=== PATIENT | female | born 1965 | race Caucasian/White ===

== ENCOUNTER 2019-09-21 15:59 | Inpatient (IN) ==
--- OUTSIDE RECORDS SUMMARY | 2019-09-21 16:03 | External Medical Summary | Continuity of Care Document ---
:1965 Author Name Jimenez Badillo Address Unavailable Unavailable , Care Team Providers Name Role Phone Kiarra Badillo Unavailable [email or web address] Unavailable Unavailable Problems Active medical history not documented Allergies and Adverse Reactions Allergy history not documented Medications Medications not documented Procedures Procedures not documented Immunizations Immunizations not documented Plan of Treatment Planned Observations Planned Goals not documented Results No Known Results Results not documented
--- OUTSIDE RECORDS SUMMARY | 2019-09-21 16:04 | External Medical Summary | Continuity of Care Document ---
:1965 Author Name Jimenez Badillo Address Unavailable Unavailable , Care Team Providers Name Role Phone Kiarra Badillo Unavailable [email or web address] [email or web address] COTA Unavailable Unavailable Problems Active medical history not documented Allergies and Adverse Reactions Allergy history not documented Medications Medications not documented Procedures Procedures not documented Immunizations Immunizations not documented Plan of Treatment Planned Observations Planned Goals not documented Results No Known Results Results not documented
[2019-09-21] MEDS ORDERED: VANCOMYCIN HCL 1,750 MG in SODIUM CHLORIDE 0.9% 500 ML IV ONE (16:37)
[2019-09-21] MEDS ORDERED: cefTRIAXone SODIUM 2,000 MG/70 ML BAG IV STA (16:37)
[2019-09-21] MEDS ORDERED: SODIUM CHLORIDE 0.9% 1000ML 2,000 ML IV ONE (16:37)
[2019-09-21] MEDS ORDERED: ACETAMINOPHEN 1,000 MG/100 ML VIAL IV STA (16:37)
[2019-09-21] MEDS ORDERED: VANCOMYCIN CONSULT ACTIVE PRN (16:37)
[2019-09-21 17:41] LABS: Base Excess VBG 0.3 mEq/L; HCO3 VBG 24 mmol/L; PCO2 VBG 34 mmHg (38-50); PO2 VBG 23 mmHg; pH VBG 7.46 (7.36-7.41)
[2019-09-21 17:44] LABS: Oxygen Saturation VBG < 60.0 %
[2019-09-21 18:02] LABS: iSTAT Creatinine 1.9 mg/dl (0.6-1.3); iSTAT Hemoglobin 14.6 g/dl (12.0-16.0); iSTAT Ionized Calcium 1.07 mmol/l (1.12-1.32); iSTAT Potassium 3.1 mmol/L (3.3-5.0)
[2019-09-21 18:32] LABS: INR 1.1 (0.9-1.1); Partial Thromboplastin Ratio 1.6; Prothrombin Time 11.1 Seconds (9.0-12.0)
[2019-09-21 18:42] LABS: Hematocrit (blood only) 39.4 % (37-47); Hemoglobin 13.6 g/dL (12.0-16.0); Mean Corpuscular Hemoglobin 28.6 pg (25-34); Mean Corpuscular Hgb Conc 34.5 g/dL (32-36); Mean Corpuscular Volume 82.8 fL (80-100); Mean Platelet Volume 12.6 fL (7.4-10.4); Platelet Count 94 K/uL (130-400); RDW Coefficient of Variation 15.2 % (11.5-14.5); RDW Standard Deviation 46.2 fL (36.4-46.3); Red Blood Count 4.76 M/uL (4.2-5.4); White Blood Count 9.93 K/uL (4.8-10.8)
--- NOTE | 2019-09-21 18:42 | Emergency Department Note ---
Impression & Plan Transaminitis, Thrombocytopenia, Elevated troponin, Renal insufficiency, Sepsis, Anaplasmosis, History of splenectomy ED Provider Note NAME: HEMA WEBSTER AGE: 54 SEX: F ARRIVES VIA: Walk-In INFORMANT: Patient, ED PROVIDER(S): Александр Oates MD CHIEF COMPLAINT: Fever loss of balance. PLAN: Disposition: Admit MEDICAL DECISION MAKING: The patient is a pleasant 54-year-old woman with a past medical history of hypothyroidism, anxiety, splenectomy, history of colitis possibly related to C. difficile who presents emergency department with report of fever over the past several days with progressive worsening of her balance where she denies feeling dizzy per se but says she stands up and falls over. She was seen by her PCP today and referred to the emergency department for evaluation of her fever. The patient reports that her doctor told her they were worried for possible stroke as well. Patient denies any high risk exposures related to COVID-19 and no known contacts with individuals diagnosed with COVID-19. She denies cough or congestion. She does report diarrhea that began last night. She denies heada shanda or any urinary symptoms. On arrival the patient is uncomfortable but no acute distress, febrile to 39.9, tachycardic in the 110s with blood pressure 90s/50s. She appears clinically dry. She has no focal neuro deficits. Neck is supple with full range of motion. I did explain to the patient the concern for having fever in the setting of a splenectomy and recommendations for empiric antibiotics and admission. Ultimately the patient was agreeable with this plan. EKG unremarkable without evidence of acute ischemia. CXR negative. WBC and H/H wnl. Platelets 94K with smear c/w anaplasmosis. Chemistry without acidosis. Creatine 1.8 without recent values for comparison. Sodium 128 and potassium 3.0. LFTs are elevated to Total bilirubin 1.3, DB 0.4, AST 200, ALT 114, AP 255. Tr oponin 0.074 likely related to demand in the setting of anaplasmosis infection/sepsis. ESR wnl. CRP and Procal are elevated. UA with epitheleal cells. Covid[address] negative[address] head negative for acute process. CT abd pelvis demonstrates nonspecific pulmonary groundglass opacities and otherwise no defini tive acute process. Given patient's asplenia she was treated CTX and Vancomycine emprirically in addition to Doxycycline for Anaplasmosis. Patient was improved appears upon re-evaluation. She does report her dog was diagnosed with Anaplasmosis recently and she found a tick on her body 2 weeks ago but did not think it was there for long. Case was discussed [place]. Simmons, [facility] [place], who will evaluate the patient for admission. Triage Nursing notes reviewed and agree them. Prior medical records reviewed Vital Signs: reviewed and remarkable for no significant abnormalities Differential diagnosis: Sepsis, UTI, pneumonia, metabolic, electrolyte abnormalities, cardiac sources, intracerebral event, toxicologic, neurologic, as well as other pathologies. ER treatment provided: See below. Diagnostics interpreted by me: ECG: Sinus tachycardia, 114, normal axis, no overt ST elevation or depression, QTC 474, QRS 114. Cardiac Monitoring: An order for continuous cardiac monitoring was placed and demonstrated sinus tachycardia, 114 bpm, no ectopy. Laboratory studies: See below Imaging studies: XR chest 1V portable HISTORY: SEPSIS COMPARISON: Chest 10/18/2012. FINDINGS: The lungs are clear. Cardiac silhouette is normal in size. No pleural effusions. No pneumothorax. IMPRESSION: No acute process. -- HEAD CT NONCONTRAST CT DOSE: 638.56 mGycm HISTORY: loss of balance TECHNIQUE: Multiaxial CT images of the head were performed without the use of intravenous contrast. Automated exposure control was utilized for this study. A dose lowering technique was utilized adhering to the principles of ALARA. Comparison: None. Findings: Small fluid levels within the sphenoid sinuses. The mastoid air cells are clear. A cluster of calcifications within the right cerebellar hemisphere measuring 2.1 cm. The calvarium and skull base are intact. The ventricles and sulci are within normal limits. There is no mass, hematoma, midline shift, or acute infarct. Impression: 1. No acute intracranial abnormality. 2. Small fluid levels within the sphenoid sinuses. 3. Right cerebellar calcifications. This is likely chronic. -- ABDOMEN AND PELVIS CT WITHOUT CONTRAST CT DOSE: 1007.64 mGycm HISTORY: fever, asplenia, diarrhea TECHNIQUE: Multiaxial CT images of the abdomen and pelvis were performed without contrast. A dose lowering technique was utilized adhering to the principles of ALARA. COMPARISON STUDY: Abdomen and pelvis CT 11/17/2011. FINDINGS: There is a 12 mm nodule within the base of the right middle lobe on image 37. This demonstrates a groundglass halo. The left lung base is clear. No pneumoperitoneum. No pneumatosis. No suspicious lytic are blastic osseous lesions. A few small scattered soft tissue nodules within the left upper quadran t likely represent splenosis. A normal spleen is not identified. These remain stable. Stable mild periportal lymphadenopathy. The unenhanced liver, pancreas, and kidneys are unremarkable. No renal or ureteral stones. No hydronephrosis. Normal caliber abdominal aorta. No retroperitoneal lymphadenopathy. Minimal fat stranding adjacent to the adrenal glands. Adrenal glands are normal in size. The bladder is unremarkable. The uterus is surgically absent. A 4.2 cm cyst within the right ovary. Rectal anastomosis. No bowel wall thickening or obstruction. Normal appendix. IMPRESSION: 1. A 12 mm nodule within the right middle lobe. This demonstrates a groundglass halo and therefore may represent a small focus of inflammatory/infectious change. However, a neoplastic process is the diagnosis of exclusion. A [address] follow-up is recommended to ensure resolution. 2. Mild nonspecific fat stranding adjacent to the bilateral adrenal glands. The adrenal glands are normal in size. This could be chronic. 3. No definite bowel wall thickening or obstruction. 4. A 4.2 cm right ovarian cyst. 3 month pelvic ultrasound recommended to ensure resolution. This could be pathologic in a postmenopausal female. Consultation(s): Case was discussed with Dr. Simmons, [facility] [place], who will evaluate the patient for admission. HPI: The patient is a pleasant 54-year-old woman with a past medical history of hypothyroidism, anxiety, splenectomy, history of colitis possibly related to C. difficile who presents emergency department with report of fever over the past several days with progressive worsening of her balance where she denies feeling dizzy per se but says she stands up and falls over. She was seen by her PCP today and referred to the emergency department for evaluation of her fever. The patient reports that her doctor told her they were worried for possible stroke as well. Patient denies any high risk exposures related to COVID-19 and no known contacts with individuals diagnosed with COVID-19. She denies cough or congestion. She does report diarrhea that began last night. She denies headache or any urinary symptoms. ROS: See above HPI for pertinent positives & negatives. A total of 10 systems reviewed and were otherwise negative. PAST MEDICAL HISTORY:See Below PAST SURGICAL HISTORY:See Below FAMILY HISTORY:See Below SOCIAL HISTORY:See Below HOME MEDICATIONS:See Below ALLERGIES:See Below VITALS:See Below PHYSICAL EXAMINATION: GENERAL: Awake, alert, uncomfortable-appearing, in no distress HENT: Normocephalic, atraumatic. Oropharynx with dry mucous membranes and otherwise unremarkable. EYES: Normal conjunctiva. Sclera non-icteric. EOMI. No nystamgus. PEARRL. NECK: Supple. No nuchal rigidity. FROM. No JVD. RESPIRATORY: Clear to auscultation. CARDIAC: Tachycardic rate, normal rhythm. Extremities warm and well perfused. Pulses equal. ABDOMEN: Soft, non-distended. No tenderness to palpation. No rebound or guarding. No masses. RECTAL: Deferred. MUSCULOSKELETAL: Chest examination reveals no tenderness. The back is symmetrical on inspection without obvious abnormality. There is no CVA tenderness to palpation. No joint edema. LOWER EXTREMITIES: Calves are equal size bilaterally and non-tender. No edema. No discoloration. NEURO: Normal sensorium. No sensory or motor deficits noted. 5/5 strength and SILT x 4 extremities. Cerebellar function intact including [id number], alternating palms, [id number]. SKIN: No rash or jaundice noted. ED COURSE: Critical Care: I have personally spent greater than 75 minutes of critical care time in the direct management of this patient. This includes bedside care, interpretation of diagnostic studies, and testing, discussion with consultants, patient, and family members, and other required patient management activities. This 75 minutes is in excess of all separately billable procedures. Александр Oates MD Past Med/Surg History Medical History (Updated 09/22/19 @ 03:35 by Александр Oates MD) History of splenectomy (Acute) Social History Preferred Language: [place] Communication Ability: Effective [employer] Truck [employer] Required: No Beliefs That Will Affect Care: None Current Living Situation: Spouse Other Information That Helps Us Care for You: No Feels Safe at Home: Yes Safety Concerns: Feels Safe At This Time Smoking Status: Never smoker Do You Dip or Chew Tobacco: No ; Second Hand Exp osure: No ; Hx Alcohol Use: No Hx Substance Use: No Allergies Allergies Allergy/AdvReac Type Severity Reaction Status Date / Time nisoldipine Allergy UNKN Verified 09/21/19 20:48 telithromycin Allergy UNKN Verified 09/21/19 20:48 propoxyphene AdvReac Mild shakes Verified 09/21/19 20:48 zolpidem AdvReac Mild dizzy Verified 09/21/19 20:48 ANITIBIOTICS Allergy . Uncoded 09/21/19 20:48 Tartrazine Allergy UNKN Uncoded 09/21/19 20:48 Home Meds Home Medications Medication Instructions Recorded Confirmed Omeprazole Disintegrating Tab 10 mg PO DAILY 09/21/19 09/21/19 amitriptyline 75 mg PO DAILY 09/21/19 09/21/19 levothyroxine [Unithroid] 100 mcg PO DAILY 09/21/19 09/21/19 Results & Data (ED) Vital Signs Vital Signs - 24 hr 09/21/19 16:08 09/21/19 16:37 09/21/19 17:05 Temperature 39.9 C H Temperature Source Oral Pulse Rate 116 H 113 H Pulse Rate from SpO2 Sensor Respiratory Rate 20 16 Blood Pressure 92/55 L 105/54 L Blood Pressure Mean 67 89 Pulse Oximetry 95 95 Oxygen Delivery Method Room Air Room Air Sepsis Recent Fever Within 48 Hours Yes Sepsis New/Unexplained Change in Mental Status No Sepsis Action Taken by Nursing No Action Required 09/21/19 17:15 09/21/19 17:30 09/21/19 17:45 Temperature Temperature Source Pulse Rate 116 H Pulse Rate from SpO2 Sensor 118 H Respiratory Rate 22 22 22 Blood Pressure 130/61 122/61 123/64 Blood Pressure Mean 77 69 85 Pulse Oximetry 99 Oxygen Delivery Method Sepsis Recent Fever Within 48 Hours Sepsis New/Unexplained Change in Mental Status Sepsis Action Taken by Nursing 09/21/19 18:31 09/21/19 18:45 09/21/19 19:30 Temperature Temperature Source Pulse Rate 108 H 105 H 100 H Pulse Rate from SpO2 Sensor 109 H 105 H 100 H Respiratory Rate 17 23 19 Blood Pressure 111/65 93/60 L 94/55 L Blood Pressure Mean 67 67 71 Pulse Oximetry 92 95 91 Oxygen Delivery Method Sepsis Recent Fever Within 48 Hours Sepsis New/Unexplained Change in Mental Status Sepsis Action Taken by Nursing 09/21/19 21:00 09/21/19 21:30 Temperature 37.8 C H Temperature Source Oral Pulse Rate 97 H 98 H Pulse Rate from SpO2 Sensor 98 H 98 H Respiratory Rate 18 20 Blood Pressure 113/67 126/68 Blood Pressure Mean 76 82 Pulse Oximetry 92 91 Oxygen Delivery Method Sepsis Recent Fever Within 48 Hours Sepsis New/Unexplained Change in Mental Status Sepsis Action Taken by Nursing Laboratory Data Attestation: I reviewed the patient's lab results. Result diagrams: 09/22/19 01:03 09/22/19 01:03 Lab Results 09/21/19 09/21/19 09/21/19 Range/Units 17:20 17:20 17:20 WBC 9.93 (4.8-10.8) K/uL RBC 4.76 (4.2-5.4) M/uL Hgb 13.6 (12.0-16.0) g/dL POC Hgb (12.0-16.0) g/dl Hct 39.4 (37-47) % POC Hct (37-47) % MCV 82.8 (80-100) fL MCH 28.6 (25-34) pg MCHC 34.5 (32-36) g/dL RDW Std Deviation 46.2 (36.4-46.3) fL RDW Coeff of Akila 15.2 H (11.5-14.5) % Plt Count 94 L (130-400) K/uL MPV 12.6 H (7.4-10.4) fL Immature Gran % (Auto) 0.8 % Neut % (Auto) 84.7 % Lymph % (Auto) 9.5 % Navarro % (Auto) 4.2 % Eos % (Auto) 0.7 % Baso % (Auto) 0.1 % Neut # (Auto) 8.41 H (1.4-6.5) K/uL Lymph # (Auto) 0.94 L (1.2-3.4) K/uL Navarro # (Auto) 0.42 (0.11-0.59) K/uL Eos # (Auto) 0.07 (0-0.5) K/uL Baso # (Auto) 0.01 (0-0.2) K/uL Immature Gran # (Auto) 0.08 H (0.00-0.02) K/uL Toxic Granulation 1+ Toxic Vacuolation 2+ Platelet Estimate Decreased L (Normal) Giant Platelets 1+ Echinocytes 1+ Schistocytes Occasional ESR 14 (0-21) mm/hr PT 11.1 (9.0-12.0) Seconds INR 1.1 (0.9-1.1) APTT 45.0 H (21.0-31.0) Seconds PTT Ratio 1.6 VBG pH (7.36-7.41) VBG pCO2 (38-50) mmHg VBG pO2 mmHg VBG HCO3 mmol/L VBG O2 Saturation % VBG Base Excess mEq/L Barometric Pressure mm/Hg POC Sodium (135-144) mmol/L Sodium (136-145) mmol/L POC Potassium (3.3-5.0) mmol/L Potassium (3.5-5.1) mmol/L POC Chloride (101-112) mmol/L Chloride (98-107) mmol/L Carbon Dioxide (21-32) mmol/L POC Total CO2 (24-31) mmol/L Anion Gap (3-11) POC Anion Gap (16-25) mmol/L POC BUN (7-18) mg/dl BUN (7-18) mg/dl Creatinine (0.6-1.2) mg/dl POC Creatinine (0.6-1.3) mg/dl Est Cr Clr Drug Dosing ml/min Est GFR ( Amer) Est GFR (Non-Af Amer) BUN/Creatinine Ratio (10-20) Glucose (70-99) mg/dl POC Glucose (other) (70-99) mg/dl Osmolality (280-300) mOsm/kg Lactate (0.4-2.0) mmol/L Calcium (8.5-10.1) mg/dl POC Ioniz Calcium Mandy (1.12-1.32) mmol/l Phosphorus (2.5-4.9) mg/dl Magnesium (1.8-2.4) mg/dl Total Bilirubin (0.2-1) mg/dl Direct Bilirubin (0-0.2) mg/dl AST (15-37) U/L ALT (12-78) U/L Alkaline Phosphatase (45-117) U/L Troponin I (0-0.045) ng/ml C-Reactive Protein (0-0.29) mg/dl Total Protein (6.4-8.2) gm/dl Albumin (3.4-5.0) gm/dl Globulin (2.5-4.0) gm/dl Albumin/Globulin Ratio (0.9-2) Procalcitonin (0-0.5) ng/ml Urine Color Urine Appearance (Clear) Urine pH (4.5-7.5) Ur Specific Manderson (1.000-1.030) Urine Protein (Negative) Urine Glucose (UA) (Negative) Urine Ketones (Negative) Urine Blood (Negative) Urine Nitrite (Negative) Urine Bilirubin (Negative) Urine Urobilinogen (Negative) Ur Leukocyte Esterase (Negative) Urine WBC (Auto) (0-5) /hpf Urine RBC (Auto) (0-4) /hpf U Hyaline Cast (Auto) (0-5) /lpf U Epithel Cells (Auto) (0-5) /lpf Urine Bacteria (Auto) (Negative) Ur Renal Epithelial Cell (0-5) /lpf Granular Casts (0) /lpf Urine Yeast Stl C. diff Tox B Gene Anaplasma Smear See Comment A COVID-19 PCR (Negative) 09/21/19 09/21/19 09/21/19 Range/Units 17:20 17:20 17:20 WBC (4.8-10.8) K/uL RBC (4.2-5.4) M/uL Hgb (12.0-16.0) g/dL POC Hgb (12.0-16.0) g/dl Hct (37-47) % POC Hct (37-47) % MCV (80-100) fL MCH (25-34) pg MCHC (32-36) g/dL RDW Std Deviation (36.4-46.3) fL RDW Coeff of Akila (11.5-14.5) % Plt Count (130-400) K/uL MPV (7.4-10.4) fL Immature Gran % (Auto) % Neut % (Auto) % Lymph % (Auto) % Navarro % (Auto) % Eos % (Auto) % Baso % (Auto) % Neut # (Auto) (1.4-6.5) K/uL Lymph # (Auto) (1.2-3.4) K/uL Navarro # (Auto) (0.11-0.59) K/uL Eos # (Auto) (0-0.5) K/uL Baso # (Auto) (0-0.2) K/uL Immature Gran # (Auto) (0.00-0.02) K/uL Toxic Granulation Toxic Vacuolation Platelet Estimate (Normal) Giant Platelets Echinocytes Schistocytes ESR (0-21) mm/hr PT (9.0-12.0) Seconds INR (0.9-1.1) APTT (21.0-31.0) Seconds PTT Ratio VBG pH (7.36-7.41) VBG pCO2 (38-50) mmHg VBG pO2 mmHg VBG HCO3 mmol/L VBG O2 Saturation % VBG Base Excess mEq/L Barometric Pressure mm/Hg POC Sodium (135-144) mmol/L Sodium 127 L (136-145) mmol/L POC Potassium (3.3-5.0) mmol/L Potassium 3.0 L (3.5-5.1) mmol/L POC Chloride (101-112) mmol/L Chloride 94 L (98-107) mmol/L Carbon Dioxide 22 (21-32) mmol/L POC Total CO2 (24-31) mmol/L Anion Gap 11.0 (3-11) POC Anion Gap (16-25) mmol/L POC BUN (7-18) mg/dl BUN 32 H (7-18) mg/dl Creatinine 1.86 H (0.6-1.2) mg/dl POC Creatinine (0.6-1.3) mg/dl Est Cr Clr Drug Dosing 38.0 ml/min Est GFR ( Amer) 34.4 Est GFR (Non-Af Amer) 29.7 BUN/Creatinine Ratio 17.2 (10-20) Glucose 87 (70-99) mg/dl POC Glucose (other) (70-99) mg/dl Osmolality (280-300) mOsm/kg Lactate 1.6 (0.4-2.0) mmol/L Calcium 8.7 (8.5-10.1) mg/dl POC Ioniz Calcium Mandy (1.12-1.32) mmol/l Phosphorus 2.6 (2.5-4.9) mg/dl Magnesium 2.2 (1.8-2.4) mg/dl Total Bilirubin 1.3 H (0.2-1) mg/dl Direct Bilirubin 0.5 H (0-0.2) mg/dl AST 200 H (15-37) U/L ALT 114 H (12-78) U/L Alkaline Phosphatase 255 H (45-117) U/L Troponin I 0.074 H* (0-0.045) ng/ml C-Reactive Protein 17.60 H (0-0.29) mg/dl Total Protein 8.0 (6.4-8.2) gm/dl Albumin 3.3 L (3.4-5.0) gm/dl Globulin 4.7 H (2.5-4.0) gm/dl Albumin/Globulin Ratio 0.7 L (0.9-2) Procalcitonin 9.46 H (0-0.5) ng/ml Urine Color Urine Appearance (Clear) Urine pH (4.5-7.5) Ur Specific Manderson (1.000-1.030) Urine Protein (Negative) Urine Glucose (UA) (Negative) Urine Ketones (Negative) Urine Blood (Negative) Urine Nitrite (Negative) Urine Bilirubin (Negative) Urine Urobilinogen (Negative) Ur Leukocyte Esterase (Negative) Urine WBC (Auto) (0-5) /hpf Urine RBC (Auto) (0-4) /hpf U Hyaline Cast (Auto) (0-5) /lpf U Epithel Cells (Auto) (0-5) /lpf Urine Bacteria (Auto) (Negative) Ur Renal Epithelial Cell (0-5) /lpf Granular Casts (0) /lpf Urine Yeast Stl C. diff Tox B Gene Anaplasma Smear COVID-19 PCR (Negative) 09/21/19 09/21/19 09/21/19 Range/Units 17:20 17:20 17:46 WBC (4.8-10.8) K/uL RBC (4.2-5.4) M/uL Hgb (12.0-16.0) g/dL POC Hgb (12.0-16.0) g/dl Hct (37-47) % POC Hct (37-47) % MCV (80-100) fL MCH (25-34) pg MCHC (32-36) g/dL RDW Std Deviation (36.4-46.3) fL RDW Coeff of Akila (11.5-14.5) % Plt Count (130-400) K/uL MPV (7.4-10.4) fL Immature Gran % (Auto) % Neut % (Auto) % Lymph % (Auto) % Navarro % (Auto) % Eos % (Auto) % Baso % (Auto) % Neut # (Auto) (1.4-6.5) K/uL Lymph # (Auto) (1.2-3.4) K/uL Navarro # (Auto) (0.11-0.59) K/uL Eos # (Auto) (0-0.5) K/uL Baso # (Auto) (0-0.2) K/uL Immature Gran # (Auto) (0.00-0.02) K/uL Toxic Granulation Toxic Vacuolation Platelet Estimate (Normal) Giant Platelets Echinocytes Schistocytes ESR (0-21) mm/hr PT (9.0-12.0) Seconds INR (0.9-1.1) APTT (21.0-31.0) Seconds PTT Ratio VBG pH 7.46 H (7.36-7.41) VBG pCO2 34 L (38-50) mmHg VBG pO2 23 mmHg VBG HCO3 24 mmol/L VBG O2 Saturation < 60.0 % VBG Base Excess 0.3 mEq/L Barometric Pressure 730.8 mm/Hg POC Sodium (135-144) mmol/L Sodium (136-145) mmol/L POC Potassium (3.3-5.0) mmol/L Potassium (3.5-5.1) mmol/L POC Chloride (101-112) mmol/L Chloride (98-107) mmol/L Carbon Dioxide (21-32) mmol/L POC Total CO2 (24-31) mmol/L Anion Gap (3-11) POC Anion Gap (16-25) mmol/L POC BUN (7-18) mg/dl BUN (7-18) mg/dl Creatinine (0.6-1.2) mg/dl POC Creatinine (0.6-1.3) mg/dl Est Cr Clr Drug Dosing ml/min Est GFR ( Amer) Est GFR (Non-Af Amer) BUN/Creatinine Ratio (10-20) Glucose (70-99) mg/dl POC Glucose (other) (70-99) mg/dl Osmolality 279 L (280-300) mOsm/kg Lactate (0.4-2.0) mmol/L Calcium (8.5-10.1) mg/dl POC Ioniz Calcium Mandy (1.12-1.32) mmol/l Phosphorus (2.5-4.9) mg/dl Magnesium (1.8-2.4) mg/dl Total Bilirubin (0.2-1) mg/dl Direct Bilirubin (0-0.2) mg/dl AST (15-37) U/L ALT (12-78) U/L Alkaline Phosphatase (45-117) U/L Troponin I (0-0.045) ng/ml C-Reactive Protein (0-0.29) mg/dl Total Protein (6.4-8.2) gm/dl Albumin (3.4-5.0) gm/dl Globulin (2.5-4.0) gm/dl Albumin/Globulin Ratio (0.9-2) Procalcitonin (0-0.5) ng/ml Urine Color Urine Appearance (Clear) Urine pH (4.5-7.5) Ur Specific Manderson (1.000-1.030) Urine Protein (Negative) Urine Glucose (UA) (Negative) Urine Ketones (Negative) Urine Blood (Negative) Urine Nitrite (Negative) Urine Bilirubin (Negative) Urine Urobilinogen (Negative) Ur Leukocyte Esterase (Negative) Urine WBC (Auto) (0-5) /hpf Urine RBC (Auto) (0-4) /hpf U Hyaline Cast (Auto) (0-5) /lpf U Epithel Cells (Auto) (0-5) /lpf Urine Bacteria (Auto) (Negative) Ur Renal Epithelial Cell (0-5) /lpf Granular Casts (0) /lpf Urine Yeast Stl C. diff Tox B Gene Anaplasma Smear COVID-19 PCR NEGATIVE (Negative) 09/21/19 09/21/19 09/21/19 Range/Units 17:50 18:17 18:17 WBC (4.8-10.8) K/uL RBC (4.2-5.4) M/uL Hgb (12.0-16.0) g/dL POC Hgb 14.6 (12.0-16.0) g/dl Hct (37-47) % POC Hct 43 (37-47) % MCV (80-100) fL MCH (25-34) pg MCHC (32-36) g/dL RDW Std Deviation (36.4-46.3) fL RDW Coeff of Akila (11.5-14.5) % Plt Count (130-400) K/uL MPV (7.4-10.4) fL Immature Gran % (Auto) % Neut % (Auto) % Lymph % (Auto) % Navarro % (Auto) % Eos % (Auto) % Baso % (Auto) % Neut # (Auto) (1.4-6.5) K/uL Lymph # (Auto) (1.2-3.4) K/uL Navarro # (Auto) (0.11-0.59) K/uL Eos # (Auto) (0-0.5) K/uL Baso # (Auto) (0-0.2) K/uL Immature Gran # (Auto) (0.00-0.02) K/uL Toxic Granulation Toxic Vacuolation Platelet Estimate (Normal) Giant Platelets Echinocytes Schistocytes ESR (0-21) mm/hr PT (9.0-12.0) Seconds INR (0.9-1.1) APTT (21.0-31.0) Seconds PTT Ratio VBG pH (7.36-7.41) VBG pCO2 (38-50) mmHg VBG pO2 mmHg VBG HCO3 mmol/L VBG O2 Saturation % VBG Base Excess mEq/L Barometric Pressure mm/Hg POC Sodium 128 L (135-144) mmol/L Sodium (136-145) mmol/L POC Potassium 3.1 L (3.3-5.0) mmol/L Potassium (3.5-5.1) mmol/L POC Chloride 94 L (101-112) mmol/L Chloride (98-107) mmol/L Carbon Dioxide (21-32) mmol/L POC Total CO2 21 L (24-31) mmol/L Anion Gap (3-11) POC Anion Gap 17.0 (16-25) mmol/L POC BUN 33 H (7-18) mg/dl BUN (7-18) mg/dl Creatinine (0.6-1.2) mg/dl POC Creatinine 1.9 H (0.6-1.3) mg/dl Est Cr Clr Drug Dosing ml/min Est GFR ( Amer) Est GFR (Non-Af Amer) BUN/Creatinine Ratio (10-20) Glucose (70-99) mg/dl POC Glucose (other) 96 (70-99) mg/dl Osmolality (280-300) mOsm/kg Lactate (0.4-2.0) mmol/L Calcium (8.5-10.1) mg/dl POC Ioniz Calcium Mandy 1.07 L (1.12-1.32) mmol/l Phosphorus (2.5-4.9) mg/dl Magnesium (1.8-2.4) mg/dl Total Bilirubin (0.2-1) mg/dl Direct Bilirubin (0-0.2) mg/dl AST (15-37) U/L ALT (12-78) U/L Alkaline Phosphatase (45-117) U/L Troponin I (0-0.045) ng/ml C-Reactive Protein (0-0.29) mg/dl Total Protein (6.4-8.2) gm/dl Albumin (3.4-5.0) gm/dl Globulin (2.5-4.0) gm/dl Albumin/Globulin Ratio (0.9-2) Procalcitonin (0-0.5) ng/ml Urine Color Dark Yellow Urine Appearance Turbid A (Clear) Urine pH 5.0 (4.5-7.5) Ur Specific Manderson 1.018 (1.000-1.030) Urine Protein 2+ H (Negative) Urine Glucose (UA) Negative (Negative) Urine Ketones Trace H (Negative) Urine Blood 2+ H (Negative) Urine Nitrite Negative (Negative) Urine Bilirubin Negative (Negative) Urine Urobilinogen Negative (Negative) Ur Leukocyte Esterase Negative (Negative) Urine WBC (Auto) 10-30 H (0-5) /hpf Urine RBC (Auto) 0-4 (0-4) /hpf U Hyaline Cast (Auto) >30 H (0-5) /lpf U Epithel Cells (Auto) >30 H (0-5) /lpf Urine Bacteria (Auto) Negative (Negative) Ur Renal Epithelial Cell 5-10 H (0-5) /lpf Granular Casts 10-20 H (0) /lpf Urine Yeast Not Reportable Stl C. diff Tox B Gene TNP Anaplasma Smear COVID-19 PCR (Negative) Administered Medications Amitriptyline HCl (Elavil) 75 mg PO HS CELIA Stop: 10/21/19 22:57 Last Admin: 09/22/19 00:49 Dose: 75 mg Documented by: [id number] Sodium Chloride (Nss 1000ml) 1,000 mls @ 125 mls/hr IV .Q8H CELIA Stop: 09/22/19 16:59 Last Admin: 09/22/19 01:00 Dose: 125 mls/hr Documented by: [id number] Discontinued Medications Sodium Chloride (Nss 1000ml) 2,000 mls @ 999 mls/hr IV .Q2H1M ONE Stop: 09/21/19 18:37 Last Infusion: 09/21/19 20:31 Dose: 0 mls/hr Documented by: [id number] Admin: 09/21/19 18:00 Dose: 999 mls/hr Documented by: [id number] Acetaminophen (Ofirmev) 1,000 mg in 100 mls @ 400 mls/hr IV NOW STA Stop: 09/21/19 16:51 Last Infusion: 09/21/19 18:15 Dose: 0 mls/hr Documented by: [id number] Admin: 09/21/19 18:00 Dose: 400 mls/hr Documented by: [id number] Ceftriaxone Sodium (Rocephin) 2,000 mg in 70 mls @ 140 mls/hr IV NOW STA Stop: 09/21/19 17:06 Last Infusion: 09/21/19 18:30 Dose: 0 mls/hr Documented by: [id number] Admin: 09/21/19 18:00 Dose: 140 mls/hr Documented by: [id number] Vancomycin HCl 1,750 mg/ (Sodium Chloride) 535 mls @ 200 mls/hr IV NOW ONE Stop: 09/21/19 19:17 Last Infusion: 09/21/19 21:56 Dose: 0 mls/hr Documented by: [id number] Admin: 09/21/19 18:15 Dose: 200 mls/hr Documented by: [id number] Doxycycline Hyclate 100 mg/ (Dextrose) 110 mls @ 50 mls/hr IV NOW STA Stop: 09/21/19 21:15 Last Infusion: 09/21/19 22:18 Dose: 0 mls/hr Documented by: [id number] Admin: 09/21/19 20:12 Dose: 50 mls/hr Documented by: [id number] Acetaminophen (Ofirmev) 1,000 mg in 100 mls @ 400 mls/hr IV ONE ONE Stop: 09/22/19 01:44 Last Infusion: 09/22/19 02:29 Dose: 0 mls/hr Documented by: [id number] Admin: 09/22/19 02:01 Dose: 400 mls/hr Documented by: [id number] Potassium Chloride (Klor-Con M20) 80 meq PO NOW STA Stop: 09/21/19 22:59 Last Admin: 09/22/19 00:49 Dose: 80 meq Documented by: [id number] Blood Pressure Blood Pressure Findings: Low blood pressure Blood Pressure Disposition: further management by hospitalist Discharge Plan Visit Data *Final* Discharge Date/Time: 09/21/19 22:12 Chief Complaint: Fever Stated Complaint: FEVER, NOT EATING, HEADACHE, SOB, POS STROKE ED Provider: Александр Oates Discharge Problem: Transaminitis, Thrombocytopenia, Elevated troponin, Renal insufficiency, Sepsis, Anaplasmosis, History of splenectomy Patient Disposition: Admitted As Inpatient Discharge Instructions Interventions: ED Discharge Assessment Last Done: 09/21/19 22:12 Discharge Problem: Sepsis Qualifiers: Sepsis type: sepsis due to unspecified organism Sepsis acute organ dysfunction status: with acute organ dysfunction Severe sepsis acute organ dysfunction type: acute renal failure Acute renal failure type: unspecified Severe sepsis shock status: without septic shock Qualified Code(s): A41.9 - Sepsis, unspecified organism
[2019-09-21 18:48] LABS: Albumin Level 3.3 gm/dl (3.4-5.0); BUN Creatinine Ratio 17.2 (10-20); Bilirubin Direct 0.5 mg/dl (0-0.2); C Reactive Protein 17.6 mg/dl (0-0.29); Calcium 8.7 mg/dl (8.5-10.1); Est GFR (African American) 34.4; Est GFR (Non-African American) 29.7; Magnesium 2.2 mg/dl (1.8-2.4)
[2019-09-21 18:51] LABS: Appearance Urine Turbid (Clear); Bacteria Urine Automated Negative (Negative); Blood Urine 2+ (Negative); Color Urine Dark Yellow; Epithelial Cell Urine Auto >30 /lpf (0-5); Glucose Urine UA Negative (Negative); Ketones Urine Trace (Negative); Leukocyte Esterase Urine Negative (Negative); Nitrite Urine Negative (Negative); Protein Urine 2+ (Negative); RBC Urine Automated 0-4 /hpf (0-4); Specific Gravity Urine 1.018 (1.000-1.030); Urobilinogen Urine Negative (Negative)
[2019-09-21 18:52] LABS: Bilirubin Urine Negative (Negative); Ictotest Urine Negative (Negative)
[2019-09-21 18:58] LABS: Basophils # (auto) 0.01 K/uL (0-0.2); Basophils % (auto) 0.1 %; Echinocytes 1+; Eosinophils # (auto) 0.07 K/uL (0-0.5); Eosinophils % (auto) 0.7 %; Giant Platelets 1+; Immature Granulocytes # (auto) 0.08 K/uL (0.00-0.02); Immature Granulocytes % (auto) 0.8 %; Lymphocytes # (auto) 0.94 K/uL (1.2-3.4); Lymphocytes % (auto) 9.5 %; Monocytes # (auto) 0.42 K/uL (0.11-0.59); Monocytes % (auto) 4.2 %; Neutrophils # (auto) 8.41 K/uL (1.4-6.5); Neutrophils % (auto) 84.7 %; Platelet Estimate Decreased (Normal); Schistocytes Occasional; Toxic Granulation 1+; Toxic Vacuolation 2+
[2019-09-21 18:59] LABS: Albumin Globulin Ratio 0.7 (0.9-2); Bilirubin,Total 1.3 mg/dl (0.2-1); Globulin 4.7 gm/dl (2.5-4.0); Phosphorus 2.6 mg/dl (2.5-4.9); Troponin I 0.074 ng/ml (0-0.045)
[2019-09-21 19:02] LABS: Cast Urine Automated >30 /lpf (0-5)
[2019-09-21] MEDS ORDERED: DOXYCYCLINE HYCLATE 100 MG in DEXTROSE 5% 100 ML IV STA (19:04)
--- NOTE | 2019-09-21 19:42 | XRay Report ---
XR chest 1V portable HISTORY: SEPSIS COMPARISON: Chest 10/18/2012. FINDINGS: The lungs are clear. Cardiac silhouette is normal in size. No pleural effusions. No pneumot horax. IMPRESSION: No acute process. ACT 112: Negative or not required by law. Electronically signed by: Gold Buitrago M.D. 09/21/2019 7:40 PM
--- NOTE | 2019-09-21 20:20 | CT Scan Report ---
ABDOMEN AND PELVIS CT WITHOUT CONTRAST CT DOSE: 1007.64 mGycm HISTORY: fever, asplenia, diarrhea TECHNIQUE: Multiaxial CT images of the abdomen and pelvis were performed without contrast. A dose lo wering technique was utilized adhering to the principles of ALARA. COMPARISON STUDY: Abdomen and pelvis CT 11/17/2011. FINDINGS: There is a 12 mm nodule within the base of the right middle lobe on image 37. This demonstr ates a groundglass halo. The left lung base is clear. No pneumoperitoneum. No pneumatosis. No suspici ous lytic are blastic osseous lesions. A few small scattered soft tissue nodules within the left uppe r quadrant likely represent splenosis. A normal spleen is not identified. These remain stable. Stable mild periportal lymphadenopathy. The unenhanced liver, pancreas, and kidneys are unremarkable. No re nal or ureteral stones. No hydronephrosis. Normal caliber abdominal aorta. No retroperitoneal lymphad enopathy. Minimal fat stranding adjacent to the adrenal glands. Adrenal glands are normal in size. Th e bladder is unremarkable. The uterus is surgically absent. A 4.2 cm cyst within the right ovary. Rec rose anastomosis. No bowel wall thickening or obstruction. Normal appendix. IMPRESSION: 1. A 12 mm nodule within the right middle lobe. This demonstrates a groundglass halo and therefore ma y represent a small focus of inflammatory/infectious change. However, a neoplastic process is the josefina gnosis of exclusion. A [address] follow-up is recommended to ensure resolution. 2. Mild nonspecific fat stranding adjacent to the bilateral adrenal glands. The adrenal glands are no rmal in size. This could be chronic. 3. No definite bowel wall thickening or obstruction. 4. A 4.2 cm right ovarian cyst. 3 month pelvic ultrasound recommended to ensure resolution. This coul d be pathologic in a postmenopausal female. ACT 112: Negative or not required by law. Electronically signed by: Gold Buitrago M.D. 09/21/2019 8:19 PM
--- NOTE | 2019-09-21 20:26 | CT Scan Report ---
HEAD CT NONCONTRAST CT DOSE: 638.56 mGycm HISTORY: loss of balance TECHNIQUE: Multiaxial CT images of the head were performed without the use of intravenous contrast. A utomated exposure control was utilized for this study. A dose lowering technique was utilized adheri ng to the principles of ALARA. Comparison: None. Findings: Small fluid levels within the sphenoid sinuses. The mastoid air cells are clear. A cluster of calcifications within the right cerebellar hemisphere measuring 2.1 cm. The calvarium and skull ba se are intact. The ventricles and sulci are within normal limits. There is no mass, hematoma, midline shift, or acute infarct. Impression: 1. No acute intracranial abnormality. 2. Small fluid levels within the sphenoid sinuses. 3. Right cerebellar calcifications. This is likely chronic. ACT 112: Negative or not required by law. Electronically signed by: Gold Buitrago M.D. 09/21/2019 8:25 PM
--- NOTE | 2019-09-21 21:40 | History & Physical Report ---
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 Laboratory abnormalities most likely consistent with this diagnosis - elevated PTT, LFTs and thrombocytopenia. Patient additionally reports that her baseline WBC count is appx 16 so her present value of 9.93 may reflect relative leukopenia. -Doxycycline 100mg po q 12 hours. Monitor closely for clinical improvement -Tylenol PRN pain or fever -Zofran PRN nausea Present on Admission?: Yes (2) Elevated troponin: Troponin elevated at 0.074 --> 0.143. Patient denies chest pain. EKG with sinus tachycardia, no acute ischemic changes. Possibly secondary to Anaplasmosis, myocardial involvement vs sepsis. Doubt ACS. Patient presently hemodynamically stable. -Telemetry monitoring -Continue to trend troponin -Consider 2D echo Present on Admission?: Yes (3) Renal insufficiency: Elevated BUN and Cr, possibly pre-renal etiology as patient appears clinically dry, admits to decreased PO intake as well -NSS at 125mL/hr -Avoid nephrotoxic agents -Renal dosing where applicable -Continue to monitor BUN/Cr/electrolytes and UOP Present on Admission?: Yes (4) Transaminitis: Mixed hepatocellular/obstructive pattern to LFTs. No RUQ tenderness or hepatomegaly. Possibly secondary to underlying Anaplasmosis infection. -Repeat LFTs in AM Present on Admission?: Yes (5) Thrombocytopenia: Patient reports low platelets at baseline since her splenectomy, Plt=94. No bleeding -Continue to monitor -Treatment of Anaplasmosis, sepsis as above Present on Admission?: Yes (6) Hyponatremia: Na low at 127. Possibly secondary to poor PO intake and dehydration, Anaplasmosis, less likely SIADH from lung nodule. No seizure or neurological manifestations. -Check urine/serum Osm -Check Urine Na -IVF as above -Continue to monitor Na Present on Admission?: Yes (7) Lung nodule: Per CT . A 12 mm nodule within the right middle lobe. This demonstrates a groundglass halo and therefore may represent a small focus of inflammatory/infectious change. However, a neoplastic process is the diagnosis of exclusion. A [address] follow-up is recommended to ensure resolution. 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 Patient reports being UTD on all vaccinations -Empiric Ceftriaxone for now -Follow cultures Present on Admission?: Yes (10) Fibromyalgia: Noted -Continue Elavil F/E/N - NSS at 125mL/hr, montior electroltyes and replete as needed, PO K ordered - patient took appx 60mEq of the prescribed 80mEq then developed abdominal discomfort. Labs in AM, Regular diet as tolerated Ppx - Low risk for DVT Code - Full Dispo - Admission to medical floor Present on Admission?: Yes Admission and Anticipated Discharge Date Admission Date: 09/21/19 Anticipated date of discharge: 09/23/19 History of Present Illness Chief Complaint: weakness, fatigue Primary Care Provider: Andrew Gutierrez MD Giselle Goncalves is a 54yo C female with history of FM, Hypothyroidism, remote history of Auto-immune hemolytic anemia s/p splenectomy at age 13. She reports following regularly with PCP and is UTD on all vaccinations. Patient was in her usual state of health until appx 5 days ago when she began "feeling weird" to include weakness/fatigue, imbalance, fevers/chills. Diarrhea x 1 day. Also with headache and nausea as well as a rash in her left axilla. Patient febrile and tachycardic on arrival. She denies visual changes, focal numbness/tingling/weakness/CP/cough/SOB/dysuria No recent travel or sick contacts. No recent contact with Covid-19 positive individuals. +Tick exposure - patient had two recent tick bites approximately 2 weeks ago. She reports that the ticks were attached but not engorged. Patient has a dog that was diagnosed with Anaplasmosis years ago. ER Course: Vancomycin Ceftriaxone Doxycycline NSS Tylenol Allergies Allergy/AdvReac Type Severity Reaction Status Date / Time nisoldipine Allergy UNKN Verified 09/21/19 20:48 telithromycin Allergy UNKN Verified 09/21/19 20:48 propoxyphene AdvReac Mild shakes Verified 09/21/19 20:48 zolpidem AdvReac Mild dizzy Verified 09/21/19 20:48 ANITIBIOTICS Allergy . Uncoded 09/21/19 20:48 Tartrazine Allergy UNKN Uncoded 09/21/19 20:48 Home Medications Home Medications Medication Instructions Recorded Confirmed Type Omeprazole Disintegrating Tab 10 mg PO DAILY 09/21/19 09/21/19 History amitriptyline 75 mg PO DAILY 09/21/19 09/21/19 History levothyroxine [Unithroid] 100 mcg PO DAILY 09/21/19 09/21/19 History Past Med/Surg History Medical History (Updated 09/22/19 @ 04:37 by Rosmery Simmons DO) Fibromyalgia History of splenectomy (Acute) History of AIHA Surgical History (Updated 09/22/19 @ 04:19 by Rosmery Simmons DO) History of cholecystectomy Family History (Updated 09/22/19 @ 04:19 by Rosmery Simmons DO) Other No significant family history Social History Preferred Language: Greek Communication Ability: Effective [employer] Required: No Beliefs That Will Affect Care: None Current Living Situation: Spouse Other Information That Helps Us Care for You: No Feels Safe at Home: Yes Safety Concerns: Feels Safe At This Time Smoking Status: Never smoker Do You Dip or Chew Tobacco: No ; Second Hand Exposure: No ; Hx Alcohol Use: No Hx Substance Use: No Review of Systems Review of Systems: All systems reviewed & are unremarkable except as noted in HPI & below Physical Exam Physical Exam: General: patient resting comfortably, NAD, non-toxic in appearance, AA&O x 4 Skin: warm, dry, intact, erythematous rash in left axilla HEENT: NC/AT, PERRL, EOMI, anicteric sclera, conjunctiva without injection, external ear normal to inspection and nontender, nares patent, dry mucus membranes, dentition intact, no oropharyngeal lesions, neck supple, trachea midline, no LAD, no thyromegaly, no JVD Heart: +S1/S2, regular, no m/r/g Lungs: equal air entry bilaterally, no rales/rhonchi/wheezes Abd: +BS, soft, NT/ND, no masses/organomegaly/ascites Ext: warm, 2+ pulses in UE/LE bilaterally, no clubbing/cyanosis or edema Neuro: nonfocal, patient AA&O x 4, speech intact, no facial droop, moving all extremities on command with equal strength 5/5 Results & Data Results & Data ([facility]) Vital Signs (Past 12 Hours) Vital Signs Temp Pulse Resp BP Pulse Ox 09/21/19 19:30 100 H 19 94/55 L 91 09/21/19 18:45 105 H 23 93/60 L 95 09/21/19 18:31 108 H 17 111/65 92 09/21/19 17:45 22 123/64 99 09/21/19 17:30 22 122/61 09/21/19 17:15 116 H 22 130/61 09/21/19 17:05 113 H 16 105/54 L 09/21/19 16:37 95 09/21/19 16:08 39.9 C H 116 H 20 92/55 L 95 Laboratory Results Lab Results 09/21/19 09/21/19 09/21/19 Range/Units 17:20 17:20 17:20 WBC 9.93 (4.8-10.8) K/uL RBC 4.76 (4.2-5.4) M/uL Hgb 13.6 (12.0-16.0) g/dL POC Hgb (12.0-16.0) g/dl Hct 39.4 (37-47) % POC Hct (37-47) % MCV 82.8 (80-100) fL MCH 28.6 (25-34) pg MCHC 34.5 (32-36) g/dL RDW Std Deviation 46.2 (36.4-46.3) fL RDW Coeff of Akila 15.2 H (11.5-14.5) % Plt Count 94 L (130-400) K/uL MPV 12.6 H (7.4-10.4) fL Immature Gran % (Auto) 0.8 % Neut % (Auto) 84.7 % Lymph % (Auto) 9.5 % [place] % (Auto) 4.2 % Eos % (Auto) 0.7 % Baso % (Auto) 0.1 % Neut # (Auto) 8.41 H (1.4-6.5) K/uL Lymph # (Auto) 0.94 L (1.2-3.4) K/uL [place] # (Auto) 0.42 (0.11-0.59) K/uL Eos # (Auto) 0.07 (0-0.5) K/uL Baso # (Auto) 0.01 (0-0.2) K/uL Immature Gran # (Auto) 0.08 H (0.00-0.02) K/uL Toxic Granulation 1+ Toxic Vacuolation 2+ Platelet Estimate Decreased L (Normal) Giant Platelets 1+ Echinocytes 1+ Schistocytes Occasional ESR 14 (0-21) mm/hr PT 11.1 (9.0-12.0) Seconds INR 1.1 (0.9-1.1) APTT 45.0 H (21.0-31.0) Seconds PTT Ratio 1.6 VBG pH (7.36-7.41) VBG pCO2 (38-50) mmHg VBG pO2 mmHg VBG HCO3 mmol/L VBG O2 Saturation % VBG Base Excess mEq/L Barometric Pressure mm/Hg POC Sodium (135-144) mmol/L Sodium (136-145) mmol/L POC Potassium (3.3-5.0) mmol/L Potassium (3.5-5.1) mmol/L POC Chloride (101-112) mmol/L Chloride (98-107) mmol/L Carbon Dioxide (21-32) mmol/L POC Total CO2 (24-31) mmol/L Anion Gap (3-11) POC Anion Gap (16-25) mmol/L POC BUN (7-18) mg/dl BUN (7-18) mg/dl Creatinine (0.6-1.2) mg/dl POC Creatinine (0.6-1.3) mg/dl Est Cr Clr Drug Dosing ml/min Est GFR ( Amer) Est GFR (Non-Af Amer) BUN/Creatinine Ratio (10-20) Glucose (70-99) mg/dl POC Glucose (other) (70-99) mg/dl Osmolality (280-300) mOsm/kg Lactate (0.4-2.0) mmol/L Calcium (8.5-10.1) mg/dl POC Ioniz Calcium Mandy (1.12-1.32) mmol/l Ionized Calcium (1.12-1.32) mmol/L Phosphorus (2.5-4.9) mg/dl Magnesium (1.8-2.4) mg/dl Total Bilirubin (0.2-1) mg/dl Direct Bilirubin (0-0.2) mg/dl AST (15-37) U/L ALT (12-78) U/L Alkaline Phosphatase (45-117) U/L Troponin I (0-0.045) ng/ml C-Reactive Protein (0-0.29) mg/dl Total Protein (6.4-8.2) gm/dl Albumin (3.4-5.0) gm/dl Globulin (2.5-4.0) gm/dl Albumin/Globulin Ratio (0.9-2) Procalcitonin (0-0.5) ng/ml TSH (0.300-4.500) uIu/ml Urine Color Urine Appearance (Clear) Urine pH (4.5-7.5) Ur Specific [place] (1.000-1.030) Urine Protein (Negative) Urine Glucose (UA) (Negative) Urine Ketones (Negative) Urine Blood (Negative) Urine Nitrite (Negative) Urine Bilirubin (Negative) Urine Urobilinogen (Negative) Ur Leukocyte Esterase (Negative) Urine WBC (Auto) (0-5) /hpf Urine RBC (Auto) (0-4) /hpf U Hyaline Cast (Auto) (0-5) /lpf U Epithel Cells (Auto) (0-5) /lpf Urine Bacteria (Auto) (Negative) Ur Renal Epithelial Cell (0-5) /lpf Granular Casts (0) /lpf Urine Yeast Urine Osmolality (500-800) mOsm/kg Ur Random Sodium mmol/L Stl C. diff Tox B Gene Anaplasma Smear See Comment A COVID-19 PCR (Negative) Hepatitis C Ab Screen (Neg) 09/21/19 09/21/19 09/21/19 Range/Units 17:20 17:20 17:20 WBC (4.8-10.8) K/uL RBC (4.2-5.4) M/uL Hgb (12.0-16.0) g/dL POC Hgb (12.0-16.0) g/dl Hct (37-47) % POC Hct (37-47) % MCV (80-100) fL MCH (25-34) pg MCHC (32-36) g/dL RDW Std Deviation (36.4-46.3) fL RDW Coeff of Akila (11.5-14.5) % Plt Count (130-400) K/uL MPV (7.4-10.4) fL Immature Gran % (Auto) % Neut % (Auto) % Lymph % (Auto) % [place] % (Auto) % Eos % (Auto) % Baso % (Auto) % Neut # (Auto) (1.4-6.5) K/uL Lymph # (Auto) (1.2-3.4) K/uL [place] # (Auto) (0.11-0.59) K/uL Eos # (Auto) (0-0.5) K/uL Baso # (Auto) (0-0.2) K/uL Immature Gran # (Auto) (0.00-0.02) K/uL Toxic Granulation Toxic Vacuolation Platelet Estimate (Normal) Giant Platelets Echinocytes Schistocytes ESR (0-21) mm/hr PT (9.0-12.0) Seconds INR (0.9-1.1) APTT (21.0-31.0) Seconds PTT Ratio VBG pH (7.36-7.41) VBG pCO2 (38-50) mmHg VBG pO2 mmHg VBG HCO3 mmol/L VBG O2 Saturation % VBG Base Excess mEq/L Barometric Pressure mm/Hg POC Sodium (135-144) mmol/L Sodium 127 L (136-145) mmol/L POC Potassium (3.3-5.0) mmol/L Potassium 3.0 L (3.5-5.1) mmol/L POC Chloride (101-112) mmol/L Chloride 94 L (98-107) mmol/L Carbon Dioxide 22 (21-32) mmol/L POC Total CO2 (24-31) mmol/L Anion Gap 11.0 (3-11) POC Anion Gap (16-25) mmol/L POC BUN (7-18) mg/dl BUN 32 H (7-18) mg/dl Creatinine 1.86 H (0.6-1.2) mg/dl POC Creatinine (0.6-1.3) mg/dl Est Cr Clr Drug Dosing 38.0 ml/min Est GFR ( Amer) 34.4 Est GFR (Non-Af Amer) 29.7 BUN/Creatinine Ratio 17.2 (10-20) Glucose 87 (70-99) mg/dl POC Glucose (other) (70-99) mg/dl Osmolality (280-300) mOsm/kg Lactate 1.6 (0.4-2.0) mmol/L Calcium 8.7 (8.5-10.1) mg/dl POC Ioniz Calcium Mandy (1.12-1.32) mmol/l Ionized Calcium (1.12-1.32) mmol/L Phosphorus 2.6 (2.5-4.9) mg/dl Magnesium 2.2 (1.8-2.4) mg/dl Total Bilirubin 1.3 H (0.2-1) mg/dl Direct Bilirubin 0.5 H (0-0.2) mg/dl AST 200 H (15-37) U/L ALT 114 H (12-78) U/L Alkaline Phosphatase 255 H (45-117) U/L Troponin I 0.074 H* (0-0.045) ng/ml C-Reactive Protein 17.60 H (0-0.29) mg/dl Total Protein 8.0 (6.4-8.2) gm/dl Albumin 3.3 L (3.4-5.0) gm/dl Globulin 4.7 H (2.5-4.0) gm/dl Albumin/Globulin Ratio 0.7 L (0.9-2) Procalcitonin 9.46 H (0-0.5) ng/ml TSH (0.300-4.500) uIu/ml Urine Color Urine Appearance (Clear) Urine pH (4.5-7.5) Ur Specific [place] (1.000-1.030) Urine Protein (Negative) Urine Glucose (UA) (Negative) Urine Ketones (Negative) Urine Blood (Negative) Urine Nitrite (Negative) Urine Bilirubin (Negative) Urine Urobilinogen (Negative) Ur Leukocyte Esterase (Negative) Urine WBC (Auto) (0-5) /hpf Urine RBC (Auto) (0-4) /hpf U Hyaline Cast (Auto) (0-5) /lpf U Epithel Cells (Auto) (0-5) /lpf Urine Bacteria (Auto) (Negative) Ur Renal Epithelial Cell (0-5) /lpf Granular Casts (0) /lpf Urine Yeast Urine Osmolality (500-800) mOsm/kg Ur Random Sodium mmol/L Stl C. diff Tox B Gene Anaplasma Smear COVID-19 PCR (Negative) Hepatitis C Ab Screen (Neg) 09/21/19 09/21/19 09/21/19 Range/Units 17:20 17:20 17:46 WBC (4.8-10.8) K/uL RBC (4.2-5.4) M/uL Hgb (12.0-16.0) g/dL POC Hgb (12.0-16.0) g/dl Hct (37-47) % POC Hct (37-47) % MCV (80-100) fL MCH (25-34) pg MCHC (32-36) g/dL RDW Std Deviation (36.4-46.3) fL RDW Coeff of Akila (11.5-14.5) % Plt Count (130-400) K/uL MPV (7.4-10.4) fL Immature Gran % (Auto) % Neut % (Auto) % Lymph % (Auto) % [place] % (Auto) % Eos % (Auto) % Baso % (Auto) % Neut # (Auto) (1.4-6.5) K/uL Lymph # (Auto) (1.2-3.4) K/uL [place] # (Auto) (0.11-0.59) K/uL Eos # (Auto) (0-0.5) K/uL Baso # (Auto) (0-0.2) K/uL Immature Gran # (Auto) (0.00-0.02) K/uL Toxic Granulation Toxic Vacuolation Platelet Estimate (Normal) Giant Platelets Echinocytes Schistocytes ESR (0-21) mm/hr PT (9.0-12.0) Seconds INR (0.9-1.1) APTT (21.0-31.0) Seconds PTT Ratio VBG pH 7.46 H (7.36-7.41) VBG pCO2 34 L (38-50) mmHg VBG pO2 23 mmHg VBG HCO3 24 mmol/L VBG O2 Saturation < 60.0 % VBG Base Excess 0.3 mEq/L Barometric Pressure 730.8 mm/Hg POC Sodium (135-144) mmol/L Sodium (136-145) mmol/L POC Potassium (3.3-5.0) mmol/L Potassium (3.5-5.1) mmol/L POC Chloride (101-112) mmol/L Chloride (98-107) mmol/L Carbon Dioxide (21-32) mmol/L POC Total CO2 (24-31) mmol/L Anion Gap (3-11) POC Anion Gap (16-25) mmol/L POC BUN (7-18) mg/dl BUN (7-18) mg/dl Creatinine (0.6-1.2) mg/dl POC Creatinine (0.6-1.3) mg/dl Est Cr Clr Drug Dosing ml/min Est GFR ( Amer) Est GFR (Non-Af Amer) BUN/Creatinine Ratio (10-20) Glucose (70-99) mg/dl POC Glucose (other) (70-99) mg/dl Osmolality 279 L (280-300) mOsm/kg Lactate (0.4-2.0) mmol/L Calcium (8.5-10.1) mg/dl POC Ioniz Calcium Mandy (1.12-1.32) mmol/l Ionized Calcium (1.12-1.32) mmol/L Phosphorus (2.5-4.9) mg/dl Magnesium (1.8-2.4) mg/dl Total Bilirubin (0.2-1) mg/dl Direct Bilirubin (0-0.2) mg/dl AST (15-37) U/L ALT (12-78) U/L Alkaline Phosphatase (45-117) U/L Troponin I (0-0.045) ng/ml C-Reactive Protein (0-0.29) mg/dl Total Protein (6.4-8.2) gm/dl Albumin (3.4-5.0) gm/dl Globulin (2.5-4.0) gm/dl Albumin/Globulin Ratio (0.9-2) Procalcitonin (0-0.5) ng/ml TSH (0.300-4.500) uIu/ml Urine Color Urine Appearance (Clear) Urine pH (4.5-7.5) Ur Specific [place] (1.000-1.030) Urine Protein (Negative) Urine Glucose (UA) (Negative) Urine Ketones (Negative) Urine Blood (Negative) Urine Nitrite (Negative) Urine Bilirubin (Negative) Urine Urobilinogen (Negative) Ur Leukocyte Esterase (Negative) Urine WBC (Auto) (0-5) /hpf Urine RBC (Auto) (0-4) /hpf U Hyaline Cast (Auto) (0-5) /lpf U Epithel Cells (Auto) (0-5) /lpf Urine Bacteria (Auto) (Negative) Ur Renal Epithelial Cell (0-5) /lpf Granular Casts (0) /lpf Urine Yeast Urine Osmolality (500-800) mOsm/kg Ur Random Sodium mmol/L Stl C. diff Tox B Gene Anaplasma Smear COVID-19 PCR NEGATIVE (Negative) Hepatitis C Ab Screen (Neg) 09/21/19 09/21/19 09/21/19 Range/Units 17:50 18:17 18:17 WBC (4.8-10.8) K/uL RBC (4.2-5.4) M/uL Hgb (12.0-16.0) g/dL POC Hgb 14.6 (12.0-16.0) g/dl Hct (37-47) % POC Hct 43 (37-47) % MCV (80-100) fL MCH (25-34) pg MCHC (32-36) g/dL RDW Std Deviation (36.4-46.3) fL RDW Coeff of Akila (11.5-14.5) % Plt Count (130-400) K/uL MPV (7.4-10.4) fL Immature Gran % (Auto) % Neut % (Auto) % Lymph % (Auto) % [place] % (Auto) % Eos % (Auto) % Baso % (Auto) % Neut # (Auto) (1.4-6.5) K/uL Lymph # (Auto) (1.2-3.4) K/uL [place] # (Auto) (0.11-0.59) K/uL Eos # (Auto) (0-0.5) K/uL Baso # (Auto) (0-0.2) K/uL Immature Gran # (Auto) (0.00-0.02) K/uL Toxic Granulation Toxic Vacuolation Platelet Estimate (Normal) Giant Platelets Echinocytes Schistocytes ESR (0-21) mm/hr PT (9.0-12.0) Seconds INR (0.9-1.1) APTT (21.0-31.0) Seconds PTT Ratio VBG pH (7.36-7.41) VBG pCO2 (38-50) mmHg VBG pO2 mmHg VBG HCO3 mmol/L VBG O2 Saturation % VBG Base Excess mEq/L Barometric Pressure mm/Hg POC Sodium 128 L (135-144) mmol/L Sodium (136-145) mmol/L POC Potassium 3.1 L (3.3-5.0) mmol/L Potassium (3.5-5.1) mmol/L POC Chloride 94 L (101-112) mmol/L Chloride (98-107) mmol/L Carbon Dioxide (21-32) mmol/L POC Total CO2 21 L (24-31) mmol/L Anion Gap (3-11) POC Anion Gap 17.0 (16-25) mmol/L POC BUN 33 H (7-18) mg/dl BUN (7-18) mg/dl Creatinine (0.6-1.2) mg/dl POC Creatinine 1.9 H (0.6-1.3) mg/dl Est Cr Clr Drug Dosing ml/min Est GFR ( Amer) Est GFR (Non-Af Amer) BUN/Creatinine Ratio (10-20) Glucose (70-99) mg/dl POC Glucose (other) 96 (70-99) mg/dl Osmolality (280-300) mOsm/kg Lactate (0.4-2.0) mmol/L Calcium (8.5-10.1) mg/dl POC Ioniz Calcium Mandy 1.07 L (1.12-1.32) mmol/l Ionized Calcium (1.12-1.32) mmol/L Phosphorus (2.5-4.9) mg/dl Magnesium (1.8-2.4) mg/dl Total Bilirubin (0.2-1) mg/dl Direct Bilirubin (0-0.2) mg/dl AST (15-37) U/L ALT (12-78) U/L Alkaline Phosphatase (45-117) U/L Troponin I (0-0.045) ng/ml C-Reactive Protein (0-0.29) mg/dl Total Protein (6.4-8.2) gm/dl Albumin (3.4-5.0) gm/dl Globulin (2.5-4.0) gm/dl Albumin/Globulin Ratio (0.9-2) Procalcitonin (0-0.5) ng/ml TSH (0.300-4.500) uIu/ml Urine Color Dark Yellow Urine Appearance Turbid A (Clear) Urine pH 5.0 (4.5-7.5) Ur Specific [place] 1.018 (1.000-1.030) Urine Protein 2+ H (Negative) Urine Glucose (UA) Negative (Negative) Urine Ketones Trace H (Negative) Urine Blood 2+ H (Negative) Urine Nitrite Negative (Negative) Urine Bilirubin Negative (Negative) Urine Urobilinogen Negative (Negative) Ur Leukocyte Esterase Negative (Negative) Urine WBC (Auto) 10-30 H (0-5) /hpf Urine RBC (Auto) 0-4 (0-4) /hpf U Hyaline Cast (Auto) >30 H (0-5) /lpf U Epithel Cells (Auto) >30 H (0-5) /lpf Urine Bacteria (Auto) Negative (Negative) Ur Renal Epithelial Cell 5-10 H (0-5) /lpf Granular Casts 10-20 H (0) /lpf Urine Yeast Not Reportable Urine Osmolality (500-800) mOsm/kg Ur Random Sodium mmol/L Stl C. diff Tox B Gene TNP Anaplasma Smear COVID-19 PCR (Negative) Hepatitis C Ab Screen (Neg) 09/22/19 09/22/19 09/22/19 Range/Units 00:25 00:25 01:03 WBC (4.8-10.8) K/uL RBC (4.2-5.4) M/uL Hgb (12.0-16.0) g/dL POC Hgb (12.0-16.0) g/dl Hct (37-47) % POC Hct (37-47) % MCV (80-100) fL MCH (25-34) pg MCHC (32-36) g/dL RDW Std Deviation (36.4-46.3) fL RDW Coeff of Akila (11.5-14.5) % Plt Count (130-400) K/uL MPV (7.4-10.4) fL Immature Gran % (Auto) % Neut % (Auto) % Lymph % (Auto) % [place] % (Auto) % Eos % (Auto) % Baso % (Auto) % Neut # (Auto) (1.4-6.5) K/uL Lymph # (Auto) (1.2-3.4) K/uL [place] # (Auto) (0.11-0.59) K/uL Eos # (Auto) (0-0.5) K/uL Baso # (Auto) (0-0.2) K/uL Immature Gran # (Auto) (0.00-0.02) K/uL Toxic Granulation Toxic Vacuolation Platelet Estimate (Normal) Giant Platelets Echinocytes Schistocytes ESR (0-21) mm/hr PT (9.0-12.0) Seconds INR (0.9-1.1) APTT (21.0-31.0) Seconds PTT Ratio VBG pH (7.36-7.41) VBG pCO2 (38-50) mmHg VBG pO2 mmHg VBG HCO3 mmol/L VBG O2 Saturation % VBG Base Excess mEq/L Barometric Pressure mm/Hg POC Sodium (135-144) mmol/L Sodium (136-145) mmol/L POC Potassium (3.3-5.0) mmol/L Potassium (3.5-5.1) mmol/L POC Chloride (101-112) mmol/L Chloride (98-107) mmol/L Carbon Dioxide (21-32) mmol/L POC Total CO2 (24-31) mmol/L Anion Gap (3-11) POC Anion Gap (16-25) mmol/L POC BUN (7-18) mg/dl BUN (7-18) mg/dl Creatinine (0.6-1.2) mg/dl POC Creatinine (0.6-1.3) mg/dl Est Cr Clr Drug Dosing ml/min Est GFR ( Amer) Est GFR (Non-Af Amer) BUN/Creatinine Ratio (10-20) Glucose (70-99) mg/dl POC Glucose (other) (70-99) mg/dl Osmolality (280-300) mOsm/kg Lactate (0.4-2.0) mmol/L Calcium (8.5-10.1) mg/dl POC Ioniz Calcium Mandy (1.12-1.32) mmol/l Ionized Calcium (1.12-1.32) mmol/L Phosphorus (2.5-4.9) mg/dl Magnesium (1.8-2.4) mg/dl Total Bilirubin (0.2-1) mg/dl Direct Bilirubin (0-0.2) mg/dl AST (15-37) U/L ALT (12-78) U/L Alkaline Phosphatase (45-117) U/L Troponin I 0.143 H* (0-0.045) ng/ml C-Reactive Protein (0-0.29) mg/dl Total Protein (6.4-8.2) gm/dl Albumin (3.4-5.0) gm/dl Globulin (2.5-4.0) gm/dl Albumin/Globulin Ratio (0.9-2) Procalcitonin (0-0.5) ng/ml TSH (0.300-4.500) uIu/ml Urine Color Urine Appearance (Clear) Urine pH (4.5-7.5) Ur Specific [place] (1.000-1.030) Urine Protein (Negative) Urine Glucose (UA) (Negative) Urine Ketones (Negative) Urine Blood (Negative) Urine Nitrite (Negative) Urine Bilirubin (Negative) Urine Urobilinogen (Negative) Ur Leukocyte Esterase (Negative) Urine WBC (Auto) (0-5) /hpf Urine RBC (Auto) (0-4) /hpf U Hyaline Cast (Auto) (0-5) /lpf U Epithel Cells (Auto) (0-5) /lpf Urine Bacteria (Auto) (Negative) Ur Renal Epithelial Cell (0-5) /lpf Granular Casts (0) /lpf Urine Yeast Urine Osmolality 292 L (500-800) mOsm/kg Ur Random Sodium 18 mmol/L Stl C. diff Tox B Gene Anaplasma Smear COVID-19 PCR (Negative) Hepatitis C Ab Screen (Neg) 09/22/19 09/22/19 09/22/19 Range/Units 01:03 01:03 01:03 WBC 10.84 H (4.8-10.8) K/uL RBC 4.68 (4.2-5.4) M/uL Hgb 13.2 (12.0-16.0) g/dL POC Hgb (12.0-16.0) g/dl Hct 38.7 (37-47) % POC Hct (37-47) % MCV 82.7 (80-100) fL MCH 28.2 (25-34) pg MCHC 34.1 (32-36) g/dL RDW Std Deviation 46.8 H (36.4-46.3) fL RDW Coeff of [place] 15.5 H (11.5-14.5) % Plt Count 76 L (130-400) K/uL MPV 10.8 H (7.4-10.4) fL Immature Gran % (Auto) 0.7 % Neut % (Auto) 90.2 % Lymph % (Auto) 5.4 % [place] % (Auto) 3.6 % Eos % (Auto) 0.0 % Baso % (Auto) 0.1 % Neut # (Auto) 9.77 H (1.4-6.5) K/uL Lymph # (Auto) 0.59 L (1.2-3.4) K/uL [place] # (Auto) 0.39 (0.11-0.59) K/uL Eos # (Auto) 0.00 (0-0.5) K/uL Baso # (Auto) 0.01 (0-0.2) K/uL Immature Gran # (Auto) 0.08 H (0.00-0.02) K/uL Toxic Granulation Toxic Vacuolation Platelet Estimate (Normal) Giant Platelets Echinocytes Schistocytes ESR (0-21) mm/hr PT (9.0-12.0) Seconds INR (0.9-1.1) APTT (21.0-31.0) Seconds PTT Ratio VBG pH (7.36-7.41) VBG pCO2 (38-50) mmHg VBG pO2 mmHg VBG HCO3 mmol/L VBG O2 Saturation % VBG Base Excess mEq/L Barometric Pressure mm/Hg POC Sodium (135-144) mmol/L Sodium 134 L D (136-145) mmol/L POC Potassium (3.3-5.0) mmol/L Potassium 3.3 L (3.5-5.1) mmol/L POC Chloride (101-112) mmol/L Chloride 103 (98-107) mmol/L Carbon Dioxide 21 (21-32) mmol/L POC Total CO2 (24-31) mmol/L Anion Gap 10.0 (3-11) POC Anion Gap (16-25) mmol/L POC BUN (7-18) mg/dl BUN 36 H (7-18) mg/dl Creatinine 1.88 H (0.6-1.2) mg/dl POC Creatinine (0.6-1.3) mg/dl Est Cr Clr Drug Dosing 37.6 ml/min Est GFR ( Amer) 34.0 Est GFR (Non-Af Amer) 29.3 BUN/Creatinine Ratio 18.9 (10-20) Glucose 88 (70-99) mg/dl POC Glucose (other) (70-99) mg/dl Osmolality (280-300) mOsm/kg Lactate (0.4-2.0) mmol/L Calcium 8.0 L (8.5-10.1) mg/dl POC Ioniz Calcium [place] (1.12-1.32) mmol/l Ionized Calcium 1.05 L (1.12-1.32) mmol/L Phosphorus (2.5-4.9) mg/dl Magnesium (1.8-2.4) mg/dl Total Bilirubin 0.9 (0.2-1) mg/dl Direct Bilirubin 0.7 H (0-0.2) mg/dl AST 179 H (15-37) U/L ALT 92 H (12-78) U/L Alkaline Phosphatase 222 H (45-117) U/L Troponin I (0-0.045) ng/ml C-Reactive Protein (0-0.29) mg/dl Total Protein 6.9 (6.4-8.2) gm/dl Albumin 2.8 L (3.4-5.0) gm/dl Globulin (2.5-4.0) gm/dl Albumin/Globulin Ratio (0.9-2) Procalcitonin (0-0.5) ng/ml TSH 0.302 (0.300-4.500) uIu/ml Urine Color Urine Appearance (Clear) Urine pH (4.5-7.5) Ur Specific [place] (1.000-1.030) Urine Protein (Negative) Urine Glucose (UA) (Negative) Urine Ketones (Negative) Urine Blood (Negative) Urine Nitrite (Negative) Urine Bilirubin (Negative) Urine Urobilinogen (Negative) Ur Leukocyte Esterase (Negative) Urine WBC (Auto) (0-5) /hpf Urine RBC (Auto) (0-4) /hpf U Hyaline Cast (Auto) (0-5) /lpf U Epithel Cells (Auto) (0-5) /lpf Urine Bacteria (Auto) (Negative) Ur Renal Epithelial Cell (0-5) /lpf Granular Casts (0) /lpf Urine Yeast Urine Osmolality (500-800) mOsm/kg Ur Random Sodium mmol/L Stl C. diff Tox B Gene Anaplasma Smear COVID-19 PCR (Negative) Hepatitis C Ab Screen (Neg) 09/22/19 Range/Units 01:03 WBC (4.8-10.8) K/uL RBC (4.2-5.4) M/uL Hgb (12.0-16.0) g/dL POC Hgb (12.0-16.0) g/dl Hct (37-47) % POC Hct (37-47) % MCV (80-100) fL MCH (25-34) pg MCHC (32-36) g/dL RDW Std Deviation (36.4-46.3) fL RDW Coeff of Akila (11.5-14.5) % Plt Count (130-400) K/uL MPV (7.4-10.4) fL Immature Gran % (Auto) % Neut % (Auto) % Lymph % (Auto) % [place] % (Auto) % Eos % (Auto) % Baso % (Auto) % Neut # (Auto) (1.4-6.5) K/uL Lymph # (Auto) (1.2-3.4) K/uL [place] # (Auto) (0.11-0.59) K/uL Eos # (Auto) (0-0.5) K/uL Baso # (Auto) (0-0.2) K/uL Immature Gran # (Auto) (0.00-0.02) K/uL Toxic Granulation Toxic Vacuolation Platelet Estimate (Normal) Giant Platelets Echinocytes Schistocytes ESR (0-21) mm/hr PT (9.0-12.0) Seconds INR (0.9-1.1) APTT (21.0-31.0) Seconds PTT Ratio VBG pH (7.36-7.41) VBG pCO2 (38-50) mmHg VBG pO2 mmHg VBG HCO3 mmol/L VBG O2 Saturation % VBG Base Excess mEq/L Barometric Pressure mm/Hg POC Sodium (135-144) mmol/L Sodium (136-145) mmol/L POC Potassium (3.3-5.0) mmol/L Potassium (3.5-5.1) mmol/L POC Chloride (101-112) mmol/L Chloride (98-107) mmol/L Carbon Dioxide (21-32) mmol/L POC Total CO2 (24-31) mmol/L Anion Gap (3-11) POC Anion Gap (16-25) mmol/L POC BUN (7-18) mg/dl BUN (7-18) mg/dl Creatinine (0.6-1.2) mg/dl POC Creatinine (0.6-1.3) mg/dl Est Cr Clr Drug Dosing ml/min Est GFR ( Amer) Est GFR (Non-Af Amer) BUN/Creatinine Ratio (10-20) Glucose (70-99) mg/dl POC Glucose (other) (70-99) mg/dl Osmolality (280-300) mOsm/kg Lactate (0.4-2.0) mmol/L Calcium (8.5-10.1) mg/dl POC Ioniz Calcium Mandy (1.12-1.32) mmol/l Ionized Calcium (1.12-1.32) mmol/L Phosphorus (2.5-4.9) mg/dl Magnesium (1.8-2.4) mg/dl Total Bilirubin (0.2-1) mg/dl Direct Bilirubin (0-0.2) mg/dl AST (15-37) U/L ALT (12-78) U/L Alkaline Phosphatase (45-117) U/L Troponin I (0-0.045) ng/ml C-Reactive Protein (0-0.29) mg/dl Total Protein (6.4-8.2) gm/dl Albumin (3.4-5.0) gm/dl Globulin (2.5-4.0) gm/dl Albumin/Globulin Ratio (0.9-2) Procalcitonin (0-0.5) ng/ml TSH (0.300-4.500) uIu/ml Urine Color Urine Appearance (Clear) Urine pH (4.5-7.5) Ur Specific [place] (1.000-1.030) Urine Protein (Negative) Urine Glucose (UA) (Negative) Urine Ketones (Negative) Urine Blood (Negative) Urine Nitrite (Negative) Urine Bilirubin (Negative) Urine Urobilinogen (Negative) Ur Leukocyte Esterase (Negative) Urine WBC (Auto) (0-5) /hpf Urine RBC (Auto) (0-4) /hpf U Hyaline Cast (Auto) (0-5) /lpf U Epithel Cells (Auto) (0-5) /lpf Urine Bacteria (Auto) (Negative) Ur Renal Epithelial Cell (0-5) /lpf Granular Casts (0) /lpf Urine Yeast Urine Osmolality (500-800) mOsm/kg Ur Random Sodium mmol/L Stl C. diff Tox B Gene Anaplasma Smear COVID-19 PCR (Negative) Hepatitis C Ab Screen Neg (Neg) Diagnostic Findings XR chest 1V portable HISTORY: SEPSIS COMPARISON: Chest 10/18/2012. FINDINGS: The lungs are clear. Cardiac silhouette is normal in size. No pleural effusions. No pneumothorax. IMPRESSION: No acute process. ACT 112: Negative or not required by law. Electronically signed by: Gold Buitrago M.D. 09/21/2019 7:40 PM Dictated: 09/21/191938 Transcribed: 09/21/191938 HEAD CT NONCONTRAST CT DOSE: 638.56 mGycm HISTORY: loss of balance TECHNIQUE: Multiaxial CT images of the head were performed without the use of intravenous contrast. Automated exposure control was utilized for this study. A dose lowering technique was utilized adhering to the principles of ALARA. Comparison: None. Findings: Small fluid levels within the sphenoid sinuses. The mastoid air cells are clear. A cluster of calcifications within the right cerebellar hemisphere measuring 2.1 cm. The calvarium and skull base are intact. The ventricles and sulci are within normal limits. There is no mass, hematoma, midline shift, or acute infarct. Impression: 1. No acute intracranial abnormality. 2. Small fluid levels within the sphenoid sinuses. 3. Right cerebellar calcifications. This is likely chronic. ACT 112: Negative or not required by law. Electronically signed by: Gold Buitrago M.D. 09/21/2019 8:25 PM Dictated: 09/21/192018 Transcribed: 09/21/[address] WITHOUT CONTRAST CT DOSE: 1007.64 mGycm HISTORY: fever, asplenia, diarrhea TECHNIQUE: Multiaxial CT images of the abdomen and pelvis were performed without contrast. A dose lowering technique was utilized adhering to the principles of ALARA. COMPARISON STUDY: Abdomen and pelvis CT 11/17/2011. FINDINGS: There is a 12 mm nodule within the base of the right middle lobe on image 37. This demonstrates a groundglass halo. The left lung base is clear. No pneumoperitoneum. No pneumatosis. No suspicious lytic are blastic osseous lesions. A few small scattered soft tissue nodules within the left upper quadrant likely represent splenosis. A normal spleen is not identified. These remain stable. Stable mild periportal lymphadenopathy. The unenhanced liver, pancreas, and kidneys are unremarkable. No renal or ureteral stones. No hydronephrosis. Normal caliber abdominal aorta. No retroperitoneal lymphadenopathy. Minimal fat stranding adjacent to the adrenal glands. Adrenal glands are normal in size. The bladder is unremarkable. The uterus is surgically absent. A 4.2 cm cyst within the right ovary. Rectal anastomosis. No bowel wall thickening or obstruction. Normal appendix. IMPRESSION: 1. A 12 mm nodule within the right middle lobe. This demonstrates a groundglass halo and therefore may represent a small focus of inflammatory/infectious change. However, a neoplastic process is the diagnosis of exclusion. A [address] follow-up is recommended to ensure resolution. 2. Mild nonspecific fat stranding adjacent to the bilateral adrenal glands. The adrenal glands are normal in size. This could be chronic. 3. No definite bowel wall thickening or obstruction. 4. A 4.2 cm right ovarian cyst. 3 month pelvic ultrasound recommended to ensure resolution. This could be pathologic in a postmenopausal female. ACT 112: Negative or not required by law. Electronically signed by: Gold Buitrago M.D. 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
[2019-09-21] MEDS ORDERED: ONDANSETRON INJ 2 MG/ML 2 ML VIAL IV PRN (22:58)
[2019-09-21] MEDS ORDERED: POTASSIUM CHLORIDE 20 MEQ TABCR PO STA (22:58)
[2019-09-21] MEDS ORDERED: ACETAMINOPHEN 325 MG TAB PO PRN (22:58)
[2019-09-22] MEDS: AMITRIPTYLINE HCL 25 MG TAB PO SCH ×2 (00:49→22:51)
[2019-09-22] MEDS: SODIUM CHLORIDE 0.9% 1000ML 1,000 ML IV SCH ×2 (01:00→09:08)
[2019-09-22 01:15] LABS: Hematocrit (blood only) 38.7 % (37-47); Hemoglobin 13.2 g/dL (12.0-16.0); Mean Corpuscular Hemoglobin 28.2 pg (25-34); Mean Corpuscular Hgb Conc 34.1 g/dL (32-36); Mean Corpuscular Volume 82.7 fL (80-100); RDW Coefficient of Variation 15.5 % (11.5-14.5); RDW Standard Deviation 46.8 fL (36.4-46.3); Red Blood Count 4.68 M/uL (4.2-5.4); White Blood Count 10.84 K/uL (4.8-10.8)
[2019-09-22] MEDS ORDERED: Nursing to Pharmacy Communication SCH (01:15)
[2019-09-22 01:18] LABS: Mean Platelet Volume 10.8 fL (7.4-10.4); Platelet Count 76 K/uL (130-400)
[2019-09-22] MEDS ORDERED: ACETAMINOPHEN 10MG/ML PEDIATRIC DOSING IV ONE (01:26)
[2019-09-22] MEDS ORDERED: ACETAMINOPHEN 1,000 MG/100 ML VIAL IV ONE (01:30)
[2019-09-22 01:33] LABS: Basophils # (auto) 0.01 K/uL (0-0.2); Basophils % (auto) 0.1 %; Immature Granulocytes # (auto) 0.08 K/uL (0.00-0.02); Immature Granulocytes % (auto) 0.7 %; Lymphocytes # (auto) 0.59 K/uL (1.2-3.4); Lymphocytes % (auto) 5.4 %; Monocytes # (auto) 0.39 K/uL (0.11-0.59); Monocytes % (auto) 3.6 %; Neutrophils # (auto) 9.77 K/uL (1.4-6.5); Neutrophils % (auto) 90.2 %
[2019-09-22 01:47] LABS: Albumin Level 2.8 gm/dl (3.4-5.0); BUN Creatinine Ratio 18.9 (10-20); Bilirubin Direct 0.7 mg/dl (0-0.2); Bilirubin,Total 0.9 mg/dl (0.2-1); Creatinine Clr Calc Pharmacy 37.6 ml/min; Est GFR (Non-African American) 29.3; Potassium 3.3 mmol/L (3.5-5.1); Thyroid Stimulating Hormone 0.302 uIu/ml (0.300-4.500); Total Protein 6.9 gm/dl (6.4-8.2)
[2019-09-22] MEDS: LEVOTHYROXINE SODIUM 100 MCG TABLET PO SCH (06:19)
[2019-09-22] MEDS: DOXYCYCLINE HYCLATE 100 MG in DEXTROSE 5% 100 ML IV SCH ×2 (09:09→20:03)
[2019-09-22] MEDS: PANTOprazole 40 MG TAB PO SCH (09:12)
--- NOTE | 2019-09-22 11:02 | Electrocardiogram Report ---
Test Reason : Blood Pressure : / mmHG Vent. Rate : 114 BPM Atrial Rate : 114 BPM P-R Int : 152 ms QRS Dur : 114 ms QT Int : 344 ms P-R-T Axes : 062 077 011 degrees QTc Int : 474 ms Sinus tachycardia Otherwise normal ECG When compared with ECG of 18-OCT-2012 14:25, No significant change was found Confirmed by Abraham Pavon ([id number]) on 09/22/2019 11:02:45 AM Referred By: REFERRED SELF Confirmed By:Won Pavon
--- NOTE | 2019-09-22 16:10 | Hospitalist Progress Note ---
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 Laboratory abnormalities most likely consistent with this diagnosis - elevated PTT, LFTs and thrombocytopenia. Patient additionally reports that her baseline WBC count is appx 16 so her present value of 9.93 may reflect relative leukopenia. - Doxycycline 100mg po q 12 hours. Monitor closely for clinical improvement - Tylenol PRN pain or fever - Zofran PRN nausea - Improving today. No fever since yesterday evening. (2) Elevated troponin: Troponin elevated at 0.074 --> 0.143. Patient denies chest pain. EKG with sinus tachycardia, no acute ischemic changes. Possibly secondary to Anaplasmosis, myocardial involvement vs sepsis. Doubt ACS. Patient presently hemodynamically stable. - Telemetry monitoring - Continue to trend troponin -> Up to 0.34 this morning. - Consider 2D echo (3) Renal insufficiency: Elevated BUN and Cr, possibly pre-renal etiology as patient appears clinically dry, admits to decreased PO intake as well. - NSS at 125mL/hr - Avoid nephrotoxic agents - Renal dosing where applicable - Continue to monitor BUN/Cr/electrolytes and UOP -> Unfortunately, not dramatically better today. Remains at 1.8. (4) Transaminitis: Mixed hepatocellular/obstructive pattern to LFTs. No RUQ tenderness or hepatomegaly. Possibly secondary to underlying Anaplasmosis infection. -Repeat LFTs in AM showed mild improvement. (5) Thrombocytopenia: Patient reports low platelets at baseline since her splenectomy, Plt=94. No bleeding. - Continue to monitor - Treatment of Anaplasmosis, sepsis as above (6) Hyponatremia: Na low at 127. Possibly secondary to poor PO intake and dehydration, Anaplasmosis, less likely SIADH from lung nodule. No seizure or neurological manifestations. - Na improved on 09/21 -> Likely anaplasmosis. (7) Lung nodule: Per CT. A 12 mm nodule within the right middle lobe. This demonstrates a groundglass halo and therefore may represent a small focus of inflammatory/infectious change. However, a neoplastic process is the diagnosis of exclusion. A [address] follow-up is recommended to ensure resolution. -Follow-up CT as recommended (8) Hypothyroid: Chronic. TSH was 0.3 on this admission. 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 Patient reports being UTD on all vaccinations. - Follow cultures -> Hold abx for now. (10) Fibromyalgia: Noted. - Continue Elavil (11) DVT prophylaxis: SCDs and early ambulation Admission and Anticipated Discharge Date Admission Date: September 21, 2019 Subjective Feeling better today. No major concerns overall. Still somewhat with a headache. Reports no fevers/chills, chest pain, shortness of breath, abdominal pain, nausea, or vomiting. Physical Exam Constitutional: WD/WN, vitals as above Eyes: EOM intact bilaterally; no conjunctival abnormality ENMT: external ear and nose normal, oropharynx normal Neck: trachea midline, no thyromegaly normal visual inspection Respiratory: normal respiratory effort, lungs clear to auscultation no respiratory distress Cardiovascular: RRR, no murmur, no edema Gastrointestinal (Abdomen): Inspection/Auscultation: abdomen normal to inspection; abdomen not distended Musculoskeletal: no cyanosis or clubbing, extremities motor strength 5/5 Skin: no rashes, warm and dry Neurologic: moves all extremities and awake Psychiatric: Orientation: alert, oriented to person and cooperative Results & Data Results & Data ([facility]) Vital Signs (Past 12 Hours) Vital Signs Temp Pulse Pulse Resp BP Pulse Ox 09/22/19 15:52 37.2 C 72 16 108/66 95 09/22/19 15:00 91 H 09/22/19 11:34 36.8 C 87 16 99/65 L 94 09/22/19 07:28 36.7 C 89 16 87/51 L 96 PG Care Time/CCT Total # of Minutes Spent Total Time Spent with Patient: Total time spent is greater than 50% in coordination of care (as documented) at patient's floor/unit and/or counseling patient: Coding Level of Care Code 63333 Subseq Hosp Care Lvl 3 Diagnoses 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
[2019-09-22] MEDS ORDERED: cefTRIAXone SODIUM 2,000 MG in DEXTROSE 5% 50 ML IV SCH (18:00)
[2019-09-23] MEDS ORDERED: HEPARIN SODIUM/DEXTROSE 25,000 UNITS/500 ML BAG IV SCH ×2 (03:07→13:45)
[2019-09-23 03:57] LABS: Partial Thromboplastin Ratio 1.7
[2019-09-23 04:04] LABS: Partial Thromboplastin Time 46.2 Seconds (21.0-31.0)
[2019-09-23 06:23] LABS: Albumin Level 2.2 gm/dl (3.4-5.0); BUN Creatinine Ratio 22.6 (10-20); Creatinine Clr Calc Pharmacy 51.7 ml/min; Est GFR (African American) 49.8; Magnesium 2.3 mg/dl (1.8-2.4); Potassium 3.4 mmol/L (3.5-5.1)
[2019-09-23 06:28] LABS: Hematocrit (blood only) 35.3 % (37-47); Hemoglobin 12.2 g/dL (12.0-16.0); Mean Corpuscular Hemoglobin 28.4 pg (25-34); Mean Corpuscular Hgb Conc 34.6 g/dL (32-36); Mean Corpuscular Volume 82.1 fL (80-100); Mean Platelet Volume 12.6 fL (7.4-10.4); Platelet Count 67 K/uL (130-400); Platelet Estimate Decreased (Normal); RDW Standard Deviation 47.7 fL (36.4-46.3); White Blood Count 10.01 K/uL (4.8-10.8)
[2019-09-23] MEDS: LEVOTHYROXINE SODIUM 100 MCG TABLET PO SCH (06:37)
[2019-09-23 06:48] LABS: Albumin Globulin Ratio 0.6 (0.9-2); Bilirubin,Total 0.6 mg/dl (0.2-1); Globulin 3.8 gm/dl (2.5-4.0); Phosphorus 2.3 mg/dl (2.5-4.9); Troponin I 54.2 ng/ml (0-0.045)
[2019-09-23] MEDS: Heparin IV Standard *NO* Bolus IV SCH ×2 (07:31→07:32)
[2019-09-23] MEDS: PANTOprazole 40 MG TAB PO SCH ×2 (08:23→08:47)
[2019-09-23] MEDS: DOXYCYCLINE HYCLATE 100 MG in DEXTROSE 5% 100 ML IV SCH ×2 (08:55→20:48)
--- NOTE | 2019-09-23 10:27 | XCELERA ---
[id number]
--- NOTE | 2019-09-23 11:01 | Cardiology Consultation ---
Date of Consultation September 23, 2019 Assessment & Plan (1) NSTEMI (non-ST elevated myocardial infarction): Patient had an acute and market rise in her cardiac biomarkers shortly after admission. While we certainly have seen elevated biomarkers suggestive cardiac involvement with anaplasmosis, the acute rise and the absolute degree elevation are concerning for a coronary syndrome. Patient did not have symptoms suggestive of an acute coronary syndrome. She is currently feeling well and her echocardiogram did not demonstrate LV dysfunction or regional wall motion abnormalities. EKG did have some transient changes concerning for acute coronary syndrome, but it seems odd that she would have a coronary syndrome coincidental to her presentation for anaplasmosis. However, I think it would be important to exclude acute coronary syndrome as the etiology. I do believe she should undergo coronary angiography. Do not believe this is an urgent matter given the absence of symptoms, the normal echocardiogram, currently normal EKG and improvement in her biomarkers. I think we can plan on performing this more electively tomorrow morning. She does have an element of thrombocytopenia which makes use of anticoagulants and anti- platelet agents more risky, but I will administer her aspirin and heparin without a bolus in order to mitigate any potential acute coronary syndrome. History of Present Illness Reason for Consultation: Elevated troponin Requesting Physician: Damian Attending Physician: Gerald Salgado MD History of Present Illness The patient is a 54-year-old woman without a known history of cardiac disease who presented to the hospital for symptoms of worsening fatigue and weakness over past few days. Patient does suffer from fibromyalgia and has had some chronic symptoms of this nature but they appear to have become much worse over the few days leading up to her admission. She also had some subjective fevers and chills. She was having some lower extremity discomfort out of proportion to her usual generalized aches and pains. At the time of her presentation she was noted to have inclusion bodies on the peripheral smear consistent with active and plasma [place]. Patient does recall to recent tick bites. She was started on antibiotic therapy and admitted for observation. Initial cardiac markers were mildly elevated but over the course of the evening repeat testing revealed a significant increase in her cardiac biomarkers. Patient cannot recall any new symptoms since admission. In fact, she feels slightly better today. She does have a history of chronic chest pain that she calls costochondritis. This is an achy sensation in the precordium that is often worse with both deep inspiration and palpation. She does not recall any different symptoms over the past 24 hours or leading up to her admission. She denies any significant shoulder, neck or back pain. Her history is complicated by chronic pains of variable intensity. However, she did not endorse any new symptoms. She does not report significant breathing difficulty. She denies orthopnea or paroxysmal nocturnal dyspnea. No palpitations. No syncope. Allergies Allergy/AdvReac Type Severity Reaction Status Date / Time nisoldipine Allergy UNKN Verified 09/21/19 20:48 telithromycin Allergy UNKN Verified 09/21/19 20:48 propoxyphene AdvReac Mild shakes Verified 09/21/19 20:48 zolpidem AdvReac Mild dizzy Verified 09/21/19 20:48 ANITIBIOTICS Allergy . Uncoded 09/21/19 20:48 Tartrazine Allergy UNKN Uncoded 09/21/19 20:48 Home Medications Home Medications Medication Instructions Recorded Confirmed Type Omeprazole Disintegrating Tab 10 mg PO DAILY 09/21/19 09/21/19 History amitriptyline 75 mg PO DAILY 09/21/19 09/21/19 History levothyroxine [Unithroid] 100 mcg PO DAILY 09/21/19 09/21/19 History Patient History Medical History Fibromyalgia History of splenectomy (Acute) History of AIHA Surgical History History of cholecystectomy Family History Other No significant family history Social History Preferred Language: Syriac Communication Ability: Effective [employer] Teacher Required: No Beliefs That Will Affect Care: None Current Living Situation: Spouse Other Information That Helps Us Care for You: No Feels Safe at Home: Yes Safety Concerns: Feels Safe At This Time Smoking Status: Never smoker Do You Dip or Chew Tobacco: No ; Second Hand Exposure: No ; Hx Alcohol Use: No Hx Substance Use: No Review of Systems Review of Systems: All systems reviewed & are unremarkable except as noted in HPI & below She had a rash on the inner aspect of the left arm. She did report some nausea recently. She reported diarrhea recently and some gait instability. Physical Exam Physical Exam: She is alert and oriented x3. Mood affect appear normal. She answered all questions appropriately. She did appear to be somewhat forgetful at times or have difficulty finding words. No focal deficits. HEENT: Sclerae are anicteric. Pupils are equal and reactive to light and accommodation. Extraocular movements were intact. Neuro: Cranial nerves intact Neck: Examination of the submandibular region did not reveal any significant lymphadenopathy. Carotids are palpable bilaterally and free of bruits on auscultation. There was no evidence of jugular venous distention. The thyroid was not enlarged. Lungs: She does have crackles in both lung [place]. No expiratory wheezing. She has normal respiratory effort without use of accessory muscles. There is normal pulmonary excursion. Cardiac: The rhythm was regular. S1 and S2 were normal. There are no murmurs on examination. The PMI was not markedly displaced on palpation. Abdomen: The abdomen was soft and nontender. Extremities: Patient has bilateral radial pulses that are equal in intensity. There is no evidence cyanosis or clubbing. There was no evidence of significant peripheral edema bilaterally. Skin: Small area of what appears to be ecchymosis in the left arm. Results & Data ([facility]) Vital Signs (Past 12 Hours) Vital Signs Temp Pulse Pulse Pulse Resp BP Pulse Ox 09/23/19 08:00 87 09/23/19 07:55 37.4 C 87 18 114/65 92 09/23/19 04:50 37.0 C 90 18 107/70 95 09/23/19 03:08 37.1 C 93 H 20 109/68 93 09/22/19 23:57 37.1 C 99 H 16 120/76 93 09/22/19 23:14 37.8 C H 101 H 20 117/69 95 Laboratory Results Abnormal Lab Results 09/22/19 09/22/19 09/23/19 16:36 23:47 03:28 WBC RBC Hgb Hct MCV MCH MCHC RDW Std Deviation RDW Coeff of Akila Plt Count MPV Platelet Estimate APTT 46.2 H* PTT Ratio 1.7 Sodium Potassium Chloride Carbon Dioxide Anion Gap BUN Creatinine Est Cr Clr Drug Dosing Est GFR ( Amer) Est GFR (Non-Af Amer) BUN/Creatinine Ratio Glucose Calcium Phosphorus Magnesium Total Bilirubin AST ALT Alkaline Phosphatase Troponin I 38.900 H* 84.400 H* Total Protein Albumin Globulin Albumin/Globulin Ratio 09/23/19 09/23/19 05:27 05:27 WBC 10.01 RBC 4.30 Hgb 12.2 Hct 35.3 L MCV 82.1 MCH 28.4 MCHC 34.6 RDW Std Deviation 47.7 H RDW Coeff of Akila 16.0 H Plt Count 67 L MPV 12.6 H Platelet Estimate Decreased L APTT PTT Ratio Sodium 137 Potassium 3.4 L Chloride 109 H Carbon Dioxide 20 L Anion Gap 8.0 BUN 31 H Creatinine 1.37 H D Est Cr Clr Drug Dosing 51.7 Est GFR ( Amer) 49.8 Est GFR (Non-Af Amer) 43.0 BUN/Creatinine Ratio 22.6 H Glucose 81 Calcium 8.0 L Phosphorus 2.3 L Magnesium 2.3 Total Bilirubin 0.6 AST 305 H ALT 80 H Alkaline Phosphatase 194 H Troponin I 54.200 H* Total Protein 6.0 L Albumin 2.2 L Globulin 3.8 Albumin/Globulin Ratio 0.6 L Diagnostic Findings Chest x-ray and abdominal/chest CT did not reveal any acute findings. She did have a pulmonary nodule in the right middle lobe. An ovarian cyst was also seen. Echocardiogram revealed normal LV function without regional wall motion abnormalities. No significant valvular heart disease. Stage I diastolic dysfu nction ECG Additional Comments: Patient had serial EKGs. Initial EKG demonstrated normal sinus rhythm with incomplete right bundle branch block. PG Care Time/CCT Total # of Minutes Spent Total Time Spent with Patient: Total time spent is greater than 50% in coordination of care (as documented) at patient's floor/unit and/or counseling patient: Coding Level of Care Code 25147 Inpt Consult Level 4 Diagnoses NSTEMI (non-ST elevated myocardial infarction) I21.4
[2019-09-23] MEDS ORDERED: ASPIRIN 325 MG ECTAB PO ONE (12:06)
--- NOTE | 2019-09-23 12:28 | Electrocardiogram Report ---
Test Reason : Blood Pressure : / mmHG Vent. Rate : 101 BPM Atrial Rate : 101 BPM P-R Int : 150 ms QRS Dur : 106 ms QT Int : 342 ms P-R-T Axes : 056 090 037 degrees QTc Int : 443 ms Age and gender specific ECG analysis Sinus tachycardia Rightward axis ST segment changes in the inferior leads concerning for injury Abnormal ECG When compared with ECG of 22-SEP-2019 23:42, (unconfirmed) There have been ST segement changes Confirmed by Abraham Pavon ([id number]) on 09/23/2019 12:28:32 PM Referred By: REFERRED SELF Confirmed By:Won Pavon
--- NOTE | 2019-09-23 12:29 | Electrocardiogram Report ---
Test Reason : Blood Pressure : / mmHG Vent. Rate : 100 BPM Atrial Rate : 100 BPM P-R Int : 150 ms QRS Dur : 106 ms QT Int : 340 ms P-R-T Axes : 056 087 031 degrees QTc Int : 438 ms Normal sinus rhythm Low voltage QRS ST segement changes in the inferior leads concerning for injury Abnormal ECG When compared with ECG of 21-SEP-2019 16:59, ST elevation now present in Inferior leads Confirmed by Abraham Pavon ([id number]) on 09/23/2019 12:28:57 PM Referred By: REFERRED SELF Confirmed By:Won Pavon
--- NOTE | 2019-09-23 12:32 | Electrocardiogram Report ---
Test Reason : Blood Pressure : / mmHG Vent. Rate : 088 BPM Atrial Rate : 088 BPM P-R Int : 164 ms QRS Dur : 112 ms QT Int : 374 ms P-R-T Axes : 067 089 035 degrees QTc Int : 452 ms Normal sinus rhythm Low voltage QRS Borderline ECG When compared with ECG of 22-SEP-2019 23:44, (unconfirmed) Inferior ST segement changes have resolved Confirmed by Abraham Pavon ([id number]) on 09/23/2019 12:32:14 PM Referred By: REFERRED SELF Confirmed By:Won Pavon
--- NOTE | 2019-09-23 13:23 | Hospitalist Progress Note ---
Date of Service September 23, 2019 Assessment & Plan (1) Elevated troponin: Troponin elevated at 0.074 --> 0.143. Patient denies chest pain. EKG with sinus tachycardia, no acute ischemic changes. Possibly secondary to Anaplasmosis, myocardial involvement vs sepsis. - On 09/21, troponin jumped from 0.35 to 39. The jump is concerning for ACS, even though she is symptom-free. - Echo on 09/22 showed normal EF, no regional wall motion abnormalities. - Seen by cardiology on 09/22 -> Plan for cath on 09/23 to rule out ACS. Would like ASA & heparin gtt until then. 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 Laboratory abnormalities most likely consistent with this diagnosis - elevated PTT, LFTs and thrombocytopenia. Patient additionally reports that her baseline WBC count is appx 16 so her present value of 9.93 may reflect relative leukopenia. - Doxycycline 100mg po q 12 hours. Monitor closely for clinical improvement - No fever since 09/22, but more confused today than yesterday. (3) Renal insufficiency: Elevated BUN and Cr, possibly pre-renal etiology as patient appears clinically dry, admits to decreased PO intake as well. - Avoid nephrotoxic agents - Renal dosing where applicable - Continue to monitor BUN/Cr/electrolytes and UOP -> Improved to 1.35 today. (4) Transaminitis: Mixed hepatocellular/obstructive pattern to LFTs. No RUQ tenderness or hepatomegaly. Possibly secondary to underlying Anaplasmosis infection. -Repeat LFTs still elevated, but not significantly worse. AST jump may reflect her heart damage. (5) Thrombocytopenia: Patient reports low platelets at baseline since her splenectomy, Plt=94. No bleeding. - Continue to monitor - Treatment of Anaplasmosis, sepsis as above. Down to 67 today. (6) Hyponatremia: Na low at 127. Possibly secondary to poor PO intake and dehydration, Anaplasmosis, less likely SIADH from lung nodule. No seizure or neurological manifestations. - Na improved on 09/21 & 09/22 -> Likely anaplasmosis. (7) Lung nodule: Per CT. A 12 mm nodule within the right middle lobe. This demonstrates a groundglass halo and therefore may represent a small focus of inflammatory/infectious change. However, a neoplastic process is the diagnosis of exclusion. A [address] follow-up is recommended to ensure resolution. - Follow-up CT as recommended (8) Hypothyroid: Chronic. TSH was 0.3 on this admission. In setting of acute illness, will not make adjustment. 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 Patient reports being UTD on all vaccinations. - Follow cultures (10) Fibromyalgia: Noted. - Continue Elavil (11) DVT prophylaxis: Heparin gtt for possible ACS Admission and Anticipated Discharge Date Admission Date: September 21, 2019 Subjective Feels ok this morning, but more confused. Denies chest pain or shortness of breath. Tired from being kept away all night. Reports no fevers/chills, chest pain, shortness of breath, abdominal pain, nausea, or vomiting. Physical Exam Constitutional: WD/WN, vitals as above Eyes: EOM intact bilaterally; no conjunctival abnormality ENMT: external ear and nose normal, oropharynx normal Neck: trachea midline, no thyromegaly normal visual inspection Respiratory: normal respiratory effort, lungs clear to auscultation no respiratory distress Cardiovascular: RRR, no murmur, no edema Gastrointestinal (Abdomen): Inspection/Auscultation: abdomen normal to ins pection; abdomen not distended Musculoskeletal: no cyanosis or clubbing, extremities motor strength 5/5 Skin: no rashes, warm and dry Neurologic: moves all extremities and awake Psychiatric: Orientation: alert, oriented to person and cooperative Results & Data Results & Data ([facility]) Vital Signs (Past 12 Hours) Vital Signs Temp Pulse Pulse Pulse Resp BP Pulse Ox 09/23/19 08:00 87 09/23/19 07:55 37.4 C 87 18 114/65 92 09/23/19 04:50 37.0 C 90 18 107/70 95 09/23/19 03:08 37.1 C 93 H 20 109/68 93 PG Care Time/CCT Total # of Minutes Spent Total Time Spent with Patient: Total time spent is greater than 50% in coordination of care (as documented) at patient's floor/unit and/or counseling patient: Coding Level of Care Code 97881 Subseq Hosp Care Lvl 3 Diagnoses Elevated troponin R79.89 Anaplasmosis A77.49 Renal insufficiency N28.9 Transaminitis R74.0 Thrombocytopenia D69.6 Hyponatremia E87.1 Lung nodule R91.1 Hypothyroid E03.9 Hypothyroidism type: unspecified History of splenectomy Z90.81 Fibromyalgia M79.7 DVT prophylaxis Z29.9 (1) Hypothyroid Hypothyroidism type: unspecified Qualified Code(s): E03.9 - Hypothyroidism, unspecified
[2019-09-23] MEDS ORDERED: Heparin IV Low Dose *NO* Bolus IV SCH (13:45)
[2019-09-23 20:39] LABS: Partial Thromboplastin Ratio 2.3
[2019-09-23 20:51] LABS: Partial Thromboplastin Time 63.8 Seconds (21.0-31.0)
[2019-09-23] MEDS: AMITRIPTYLINE HCL 25 MG TAB PO SCH (22:13)
[2019-09-24 02:30] LABS: Prothrombin Time 10.5 Seconds (9.0-12.0)
[2019-09-24 02:41] LABS: Partial Thromboplastin Ratio 2.3
[2019-09-24 02:42] LABS: Albumin Level 2.4 gm/dl (3.4-5.0); BUN Creatinine Ratio 22.2 (10-20); Calcium 8.7 mg/dl (8.5-10.1); Creatinine Clr Calc Pharmacy 63.2 ml/min; Est GFR (African American) 63.6; Est GFR (Non-African American) 54.9; Magnesium 2.2 mg/dl (1.8-2.4); Potassium 2.8 mmol/L (3.5-5.1)
[2019-09-24 02:46] LABS: Partial Thromboplastin Time 64.8 Seconds (21.0-31.0)
[2019-09-24 02:56] LABS: Albumin Globulin Ratio 0.6 (0.9-2); Bilirubin,Total 0.8 mg/dl (0.2-1); Globulin 3.9 gm/dl (2.5-4.0); Phosphorus 1.3 mg/dl (2.5-4.9); Total Protein 6.3 gm/dl (6.4-8.2)
[2019-09-24] MEDS ORDERED: POTASSIUM PHOS 3 MMOL/1 ML INFUSION IV STA ×2 (03:23→14:07)
[2019-09-24] MEDS ORDERED: POTASSIUM PHOSPHATE 30 MMOL in SODIUM CHLORIDE 0.9% 500 ML IV ONE (03:45)
[2019-09-24] MEDS: POTASSIUM CHLORIDE / WTR 10 MEQ/100 ML PLCT IV SCH ×6 (04:08→19:41)
[2019-09-24] MEDS: LEVOTHYROXINE SODIUM 100 MCG TABLET PO SCH (05:59)
[2019-09-24] MEDS ORDERED: HEPARIN (PORCINE) 1000 UNIT/ML 10 ML (CATH LAB USE ONLY) ONE (07:24)
[2019-09-24] MEDS ORDERED: NiCARDipine HCL INJ 2.5 MG/ML 10 ML AMP ONE (07:24)
[2019-09-24] MEDS ORDERED: NITROGLYCERIN/D5W 100MCG/ML 20ML SYR ONE (07:25)
[2019-09-24] MEDS ORDERED: MIDAZOLAM HCL 1 MG/ML 2ML VIAL ONE (07:25)
[2019-09-24] MEDS ORDERED: fentaNYL citrate 100 MCG/2 ML VIAL ONE (07:25)
--- NOTE | 2019-09-24 07:49 | Pre Anesthesia Assessment ---
Date of Service September 24, 2019 Pre Sedation Assessment Vital Signs Temp Pulse Pulse Pulse Resp BP Pulse Ox 09/24/19 03:31 36.7 C 85 19 130/81 93 09/23/19 23:56 87 09/23/19 23:17 36.5 C 86 18 131/78 94 09/23/19 19:50 36.4 C L 91 H 18 117/78 09/23/19 16:04 37.2 C 85 18 113/71 92 09/23/19 15:36 85 09/23/19 08:00 87 09/23/19 07:55 37.4 C 87 18 114/65 92 Cardiovascular + regular rate Respiratory + respiratory effort normal Pre-Sedation Airway Assessment Smoking Status: Never smoker Hx Sleep Apnea: No Hx Difficult Intubation: No Short, Thick Neck: No Thyromental Distance: > or= 3.5 Finger Breadths Oral Cavity: + WNL Mallampati Class: III ASA: ASA2 NPO Status Date of Last Intake of Fluids: 09/23/19 Time of Last Intake of Fluids: 19:00 Date of Last Intake of Solid Food: 09/23/19 Time of Last Intake of Solid Foods: 19:00 Procedure Planning Contraindications for Sedation: none Current Medications Reviewed: Yes Notes The planned sedation has been discussed with the patient. Informed Consent was obtained. I have identified the patient, determined the appropriateness of sedation and have assessed the patient immediately prior to the procedure. All medicine(s) and interventions are by my order.
[2019-09-24 08:05] LABS: iSTAT Creatinine 1.1 mg/dl (0.6-1.3); iSTAT Hemoglobin 14.3 g/dl (12.0-16.0); iSTAT Ionized Calcium 1.17 mmol/l (1.12-1.32); iSTAT Potassium 3.1 mmol/L (3.3-5.0)
--- NOTE | 2019-09-24 08:36 | Cardiac Catheterization ---
[facility] Data: Commissary Agent Cardiac Status Clinical evaluation leading to the procedure CAD Presenation: Non STEMI Diagnostic Physicians Name: Abraham Pavon MD Closure Device Recommendations: Medical Therapy and/or Counseling Cardiac Cath Procedure Full Procedure Date September 24, 2019 Pre-Procedure Diagnosis Pre-Procedure Diagnosis: Non STEMI AUC Score AUC Score: 8 Post-Procedure Diagnosis Post-Procedure Diagnosis: Normal Coronary Arteries Procedure(s) Performed Procedure(s) Performed: Coronary Angiography and Left Heart Cath Thermostat Mechanic Abraham Pavon MD Primary Substance Abuse Counselor(s) none Estimated Blood Loss Estimated Blood Loss: 10cc Medication(s) Medication(s): Fentanyl, Heparin, Lidocaine 1%, Nicardipine, Nitroglycerin and Versed Summary of Findings Procedure performed: Left heart catheterization, coronary angiography Staff combat rifle crewmember: Abraham Pavon MD Indication: The patient is a 54-year-old woman admitted with diffuse symptoms suggestive of anaplasmosis. She was noted to have significantly elevated cardiac biomarkers and was therefore advised to consider coronary angiography. Procedure in detail: The patient was informed of the risk benefits and alternatives to the intended procedure. She understood and wished to proceed. She was taken to the cardiac catheterization suite in a fasting state. Conscious addition was administered per protocol and the patient was monitored electrocardiographically throughout today's procedure. The right radial area was prepped and draped in usual sterile fashion. This area was anesthetized using subcutaneous ministration of a lidocaine solution. The right radial artery was simply accessed using Seldi nger technique and a sheath was placed over guidewire at this site. This sheath was used to facilitate passage of the cardiac catheters for selective coronary angiography and left heart catheterization. Images were taken multiple orthogonal views prior to removal of the catheter and sheath. The patient tolerated procedure well. There were no immediate complications. Equipment used: 5 [place] 4 Findings: Coronary angiography Left main: Left main coronary artery was normal in size and caliber. It bifurcated normally into the left anterior descending and left circumflex arteries. Left anterior descending: Left anterior descending artery was a transapical vessel. It produced several small diminutive diagonal branches there was no evidence of obstructive coronary disease in this vessel. There was evidence of hypertensive arteriopathy Left circumflex artery: Left circumflex artery was a nondominant vessel. It produced 2 large OM systems. There was no obstructive disease in this vessel. There was evidence of hypertensive arteriopathy Right coronary artery: Right coronary artery was of normal size and caliber. It produced a large ramus intermedius, and a medium size PDA system. There not appear to be any obstructive disease in this distribution. Hemodynamics Rest Ao:: 106/73 mmHg Final Ao: 112/73 mmHg LV: 113/7 mmHg LVEDP 13 mmHg Recommendations Recommendations: Medical Therapy and/or Counseling Specimens Specimens: None Radiation Exposure (mGy) 532 Contrast (mls) 20 Procedural Complication(s) None Disposition PCU I attest to the content of the Intraoperative Record and any orders documented therein. Any exceptions are noted below. [facility] Card Cath Procedure Codes Cardiac Catheterization Procedure 1: Cardiovascular Cath Procedures: 66500 Coronaries and LHC (+/-LV) Moderate Sedation Procedure 1: Sedation/Anesthesia: 57411 Mod Sedation by the same physician;Init15 Min Child Age 5 & Up Procedure 2: Sedation/Anesthesia: 19147 Mod Sedation by the same physician; Ea [id number] Minutes PG Care Time/CCT Total # of Minutes Spent Total Time Spent with Patient: Total time spent is greater than 50% in coordination of care (as documented) at patient's floor/unit and/or counseling patient:
[2019-09-24] MEDS ORDERED: ASPIRIN 81 MG ECTAB PO SCH (09:00)
[2019-09-24] MEDS: DOXYCYCLINE HYCLATE 100 MG in DEXTROSE 5% 100 ML IV SCH (09:17)
--- NOTE | 2019-09-24 09:18 | Post Anesthesia Assessment ---
Date of Service September 24, 2019 Post Sedation Assessment Vital Signs Temp Pulse Pulse Pulse Resp BP Pulse Ox 09/24/19 09:01 84 18 119/76 95 09/24/19 08:35 84 14 125/71 90 09/24/19 07:54 36.7 C 93 H 18 155/90 H 95 09/24/19 03:31 36.7 C 85 19 130/81 93 09/23/19 23:56 87 09/23/19 23:17 36.5 C 86 18 131/78 94 09/23/19 19:50 36.4 C L 91 H 18 117/78 09/23/19 16:04 37.2 C 85 18 113/71 92 09/23/19 15:36 85 Recovery Score Activity: Moves 4 extremities Respiration: Deep Breath/Cough Circulation: +/-20% PreAnes Value Consciousness: Fully Awake Oxygen Saturation: O2 needed for >90% Post Anesthesia Score: 9 Discharge Sedation Level of Care: Fast Track Phase II Post Sedation Plan On clinical assessment, the patient appears to have tolerated the sedation without complications. Patient is recovering as anticipated. Patient will continue to be monitored by nursing and may be discharged when sedation discharge criteria are met per below protocol. Upon Completions of procedure up to 15 minutes continue every 5 minute vital signs and the P.A.R. score; then discharge to a Phase I or Fast Track to Phase II per the following guidelines: * Discharge Patient to appropriate Phase II area if PAR is 8 or greater or return to pre- procedure baseline. The post - procedure orders will be as directed. * If PAR score is less than 8 or not return to pre-procedure baseline then patient will follow Phase I monitoring till PAR is reached for Phase II. The Phase I may be done in procedure room or may call to secure a Phase I area. * If naloxone or flumazenil are used for reversal, hold in Phase I for continued monitoring from when last reversal dose was given for a minimum of 60 minutes or longer pending the nurse and/or physician discretion of patient condition before discharge to Phase II. Please call the Sedation Physician to re-evaluate and complete post-note for discharge to Phase II area. Do NOT discharge from procedure sedation or Phase 1 until post- sedation evaluation note is complete by procedure /sedation MD Sedation Discharge Instructions to be given to the patient at discharge to home.
[2019-09-24] MEDS: PANTOprazole 40 MG TAB PO SCH (09:23)
[2019-09-24 09:38] LABS: Hematocrit (blood only) 36.2 % (37-47); Hemoglobin 12.1 g/dL (12.0-16.0); Mean Corpuscular Hemoglobin 27.4 pg (25-34); Mean Corpuscular Hgb Conc 33.4 g/dL (32-36); Mean Corpuscular Volume 82.1 fL (80-100); Nucleated RBC # (auto) 0.02 K/uL (0-0); Nucleated RBC % (auto) 0.2 %; Platelet Count 86 K/uL (130-400); RDW Coefficient of Variation 15.8 % (11.5-14.5); RDW Standard Deviation 47.4 fL (36.4-46.3); Red Blood Count 4.41 M/uL (4.2-5.4); White Blood Count 10.98 K/uL (4.8-10.8)
[2019-09-24 11:30] LABS: Anaplasmosis Smear(Rpt to DOH) Pos for Anaplasma
[2019-09-24] MEDS ORDERED: POTASSIUM PHOSPHATE 24 MMOL in SODIUM CHLORIDE 0.9% 500 ML IV STA (14:10)
[2019-09-24 15:27] LABS: Albumin Level 2.3 gm/dl (3.4-5.0); BUN Creatinine Ratio 21.1 (10-20); Calcium 8.1 mg/dl (8.5-10.1); Creatinine Clr Calc Pharmacy 67.4 ml/min; Est GFR (Non-African American) 58.7
[2019-09-24 15:31] LABS: Albumin Globulin Ratio 0.6 (0.9-2); Bilirubin,Total 0.7 mg/dl (0.2-1); Globulin 3.8 gm/dl (2.5-4.0); Phosphorus 2.6 mg/dl (2.5-4.9); Total Protein 6.1 gm/dl (6.4-8.2)
--- NOTE | 2019-09-24 16:18 | Cardiology Progress Note ---
Date of Service September 24, 2019 Assessment & Plan (1) NSTEMI (non-ST elevated myocardial infarction): The QT and significant rise in her biomarkers suggests an acute coronary syndrome, but her coronary angiography was normal. I suppose it is possible this could represent a transient spasm or transient thrombus. However, there were no significant lesions noted on angiography either. She never had symptoms of chest discomfort and despite the marked elevations in her biomarkers there were no wall motion abnormalities on her echocardiogram. Some elevation can be seen in the setting of a pulmonary embolus, but not likely to this degree. She also does not have symptoms of dyspnea or pleuritic chest discomfort. She does not have hypoxia. I do not see any indication for additional cardiac tests or treatment. She should simply be treated for her infectious process and she can be monitored on outpatient basis for any symptoms of cardiac disease. Given her history of thrombocytopenia in the absence of any acute coronary syndrome, I think her aspirin can be discontinued. Admission and Anticipated Discharge Date Admission Date: September 21, 2019 Anticipated date of discharge: 09/23/19 Subjective This afternoon the patient claims to be feeling well. She reports being ambulatory around the room without limiting symptoms. She denies any symptoms of chest discomfort or pressure. Overall claims to be feeling better than she did at admission Review of Systems Review of Systems: Per HPI Physical Exam Physical Exam: She is alert and oriented x3. Mood affect appear normal. She answered all questions appropriately. She did appear to be somewhat forgetful at times or have difficulty finding words. No focal deficits. HEENT: Sclerae are anicteric. Pupils are equal and reactive to light and accommodation. Extraocular movements were intact. Neuro: Cranial nerves intact Neck: Examination of the submandibular region did not reveal any significant lymphadenopathy. Carotids are palpable bilaterally and free of bruits on auscultation. There was no evidence of jugular venous distention. The thyroid was not enlarged. Lungs: Lungs appear clear. Normal respiratory effort. No expiratory wheezing. Cardiac: The rhythm was regular. S1 and S2 were normal. There are no murmurs on examination. The PMI was not markedly displaced on palpation. Abdomen: The abdomen was soft and nontender. Extremities: Good perfusion of the right hand. There is no evidence cyanosis or clubbing. There was no evidence of significant peripheral edema bilaterally. Skin: Small area of what appears to be ecchymosis in the left arm. ENMT: Mallampati Class: III Respiratory: normal respiratory effort Cardiovascular: Rate/Rhythm: regular rate Results & Data ([facility]) Vital Signs (Past 12 Hours) Vital Signs Temp Pulse Pulse Pulse Resp BP Pulse Ox 09/24/19 15:28 37.0 C 83 20 136/78 90 09/24/19 14:30 94 H 09/24/19 14:00 95 H 18 119/80 93 09/24/19 13:46 95 H 119/80 09/24/19 11:46 82 128/75 09/24/19 10:46 94 H 126/72 09/24/19 10:36 85 09/24/19 09:46 89 134/79 09/24/19 09:16 84 132/83 09/24/19 09:01 84 18 119/76 95 09/24/19 08:35 84 14 125/71 90 09/24/19 07:54 36.7 C 93 H 18 155/90 H 95 Laboratory Results Abnormal Lab Results 09/21/19 09/23/19 09/24/19 17:20 20:11 02:01 WBC RBC Hgb POC Hgb Hct POC Hct MCV MCH MCHC RDW Std Deviation RDW Coeff of Akila Plt Count Absolute Nucleated RBC Nucleated RBC % (auto) Peripher Smr Path Cons PT INR APTT 63.8 H* PTT Ratio 2.3 POC Sodium Sodium POC Potassium Potassium POC Chloride Chloride Carbon Dioxide POC Total CO2 Anion Gap POC Anion Gap POC BUN BUN Creatinine POC Creatinine Est Cr Clr Drug Dosing Est GFR ( Amer) Est GFR (Non-Af Amer) BUN/Creatinine Ratio Glucose POC Glucose (other) Calcium POC Ioniz Calcium Mandy Phosphorus Magnesium Total Bilirubin AST ALT Alkaline Phosphatase Total Protein Albumin Globulin Albumin/Globulin Ratio Anaplasma Comment Pos for Anaplasma 09/24/19 09/24/19 09/24/19 02:01 02:01 02:01 WBC RBC Hgb POC Hgb Hct POC Hct MCV MCH MCHC RDW Std Deviation RDW Coeff of Akila Plt Count Absolute Nucleated RBC Nucleated RBC % (auto) Peripher Smr Path Cons PT 10.5 INR 1.0 APTT 64.8 H* PTT Ratio 2.3 POC Sodium Sodium 138 POC Potassium Potassium 2.8 L D POC Chloride Chloride 110 H Carbon Dioxide 20 L POC Total CO2 Anion Gap 8.0 POC Anion Gap POC BUN BUN 25 H Creatinine 1.12 POC Creatinine Est Cr Clr Drug Dosing 63.2 Est GFR ( Amer) 63.6 Est GFR (Non-Af Amer) 54.9 BUN/Creatinine Ratio 22.2 H Glucose 77 POC Glucose (other) Calcium 8.7 POC Ioniz Calcium Mandy Phosphorus 1.3 L* D Magnesium 2.2 Total Bilirubin 0.8 AST 171 H ALT 75 Alkaline Phosphatase 184 H Total Protein 6.3 L Albumin 2.4 L Globulin 3.9 Albumin/Globulin Ratio 0.6 L Anaplasma Comment 09/24/19 09/24/19 09/24/19 07:46 08:30 14:55 WBC 10.98 H RBC 4.41 Hgb 12.1 POC Hgb 14.3 Hct 36.2 L POC Hct 42 MCV 82.1 MCH 27.4 MCHC 33.4 RDW Std Deviation 47.4 H RDW Coeff of Akila 15.8 H Plt Count 86 L Absolute Nucleated RBC 0.02 H Nucleated RBC % (auto) 0.2 Peripher Smr Path Cons PT INR APTT PTT Ratio POC Sodium 138 Sodium 139 POC Potassium 3.1 L Potassium 3.0 L POC Chloride 107 Chloride 110 H Carbon Dioxide 19 L POC Total CO2 19 L Anion Gap 10.0 POC Anion Gap 15.0 L POC BUN 22 H BUN 22 H Creatinine 1.06 POC Creatinine 1.1 Est Cr Clr Drug Dosing 67.4 Est GFR ( Amer) 68.0 Est GFR (Non-Af Amer) 58.7 BUN/Creatinine Ratio 21.1 H Glucose 92 POC Glucose (other) 77 Calcium 8.1 L POC Ioniz Calcium Mandy 1.17 Phosphorus 2.6 D Magnesium Total Bilirubin 0.7 AST 120 H ALT 70 Alkaline Phosphatase 166 H Total Protein 6.1 L Albumin 2.3 L Globulin 3.8 Albumin/Globulin Ratio 0.6 L Anaplasma Comment Diagnostic Findings Coronary angiography did not reveal any obstructive or acute lesions. Left ventricular end-diastolic pressure was normal. PG Care Time/CCT Total # of Minutes Spent Total Time Spent with Patient: Total time spent is greater than 50% in coordination of care (as documented) at patient's floor/unit and/or counseling patient: Coding Level of Care Code 60293 Subseq Hosp Care Lvl 3 Diagnoses NSTEMI (non-ST elevated myocardial infarction) I21.4
[2019-09-24] MEDS ORDERED: LORazepam 2 MG/4 ML VIAL IV STA (20:32)
[2019-09-24] MEDS ORDERED: HALOPERIDOL LACTATE 5 MG/ML 1 ML VIAL IM STA (20:32)
[2019-09-24] MEDS: DOXYCYCLINE HYCLATE 100 MG CAP PO SCH (21:28)
[2019-09-24] MEDS: AMITRIPTYLINE HCL 25 MG TAB PO SCH (21:28)
--- NOTE | 2019-09-24 21:34 | Hospitalist Progress Note ---
Date of Service September 24, 2019 Assessment & Plan (1) Elevated troponin: Troponin elevated at 0.074 --> 0.143. Patient denies chest pain. EKG with sinus tachycardia, no acute ischemic changes. Possibly secondary to Anaplasmosis, myocardial involvement vs sepsis. - On 09/21, troponin jumped from 0.35 to 39. The jump is concerning for ACS, even though she is symptom-free. - Echo on 09/22 showed normal EF, no regional wall motion abnormalities. - Seen by cardiology on 09/22 -> Cath on 09/23 was negative. Unsure as the cause of her elevated trop. But it does not appear to be ACS. 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 Laboratory abnormalities most likely consistent with this diagnosis - elevated PTT, LFTs and thrombocytopenia. Patient additionally reports that her baseline WBC count is appx 16 so her present value of 9.93 may reflect relative leukopenia. - Doxycycline 100mg po q 12 hours. Monitor closely for clinical improvement - No fever since 09/22, but more confused today than yesterday. (3) Renal insufficiency: Elevated BUN and Cr, possibly pre-renal etiology as patient appears clinically dry, admits to decreased PO intake as well. - Avoid nephrotoxic agents - Renal dosing where applicable - Continue to monitor BUN/Cr/electrolytes and UOP -> Improved to 1.35 today. (4) Transaminitis: Mixed hepatocellular/obstructive pattern to LFTs. No RUQ tenderness or hepatomegaly. Possibly secondary to underlying Anaplasmosis infection. -Repeat LFTs still elevated, but not significantly worse. AST jump may reflect her heart damage. (5) Thrombocytopenia: Patient reports low platelets at baseline since her splenectomy, Plt=94. No bleeding. - Continue to monitor - Treatment of Anaplasmosis, sepsis as above. improved to 86. (6) Hyponatremia: Na low at 127. Possibly secondary to poor PO intake and dehydration, Anaplasmosis, less likely SIADH from lung nodule. No seizure or neurological manifestations. - Na improved-> Likely anaplasmosis. (7) Lung nodule: Per CT. A 12 mm nodule within the right middle lobe. This demonstrates a groundglass halo and therefore may represent a small focus of inflammatory/infectious change. However, a neoplastic process is the diagnosis of exclusion. A [address] follow-up is recommended to ensure resolution. - Follow-up CT as recommended (8) Hypothyroid: Chronic. TSH was 0.3 on this admission. In setting of acute illness, will not make adjustment. 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 Patient reports being UTD on all vaccinations. - Follow cultures (10) Fibromyalgia: Noted. - Continue Elavil (11) DVT prophylaxis: Heparin will be stopped. Admission and Anticipated Discharge Date Admission Date: September 21, 2019 Subjective Patient claims to be doing well. She reports having spoke to Dr. Paiz, but she actually had seen Dr. Pavon. She apologizes for that mistake. Review of Systems Review of Systems: All systems reviewed & are unremarkable except as noted in HPI & below Physical Exam Physical Exam: Constitutional: WD/WN, vitals as above Eyes: EOM intact bilaterally; no conjunctival abnormality ENMT: external ear and nose normal, oropharynx normal Neck: trachea midline, no thyromegaly normal visual inspection Respiratory: normal respiratory effort, lungs clear to auscultation no respiratory distress Cardiovascular: RRR, no murmur, no edema Gastrointestinal (Abdomen): Inspection/Auscultation: abdomen normal to inspection; abdomen not distended Musculoskeletal: no cyanosis or clubbing, extremities motor strength 5/5 Skin: no rashes, warm and dry Neurologic: moves all extremities and awake Psychiatric: Orientation: alert, oriented to person and cooperative Results & Data Results & Data ([facility]) Vital Signs (Past 12 Hours) Vital Signs Temp Pulse Pulse Pulse Resp BP Pulse Ox 09/24/19 19:46 37.2 C 89 19 136/83 94 09/24/19 15:28 37.0 C 83 20 136/78 90 09/24/19 14:30 94 H 09/24/19 14:00 95 H 18 119/80 93 09/24/19 13:46 95 H 119/80 09/24/19 11:46 82 128/75 09/24/19 10:46 94 H 126/72 09/24/19 10:36 85 09/24/19 09:46 89 134/79 PG Care Time/CCT Total # of Minutes Spent Total Time Spent with Patient: Total time spent is greater than 50% in coordination of care (as documented) at patient's floor/unit and/or counseling patient: Coding Level of Care Code 54157 Subseq Hosp Care Lvl 3 Diagnoses Elevated troponin R79.89 Anaplasmosis A77.49 Renal insufficiency N28.9 Transaminitis R74.0 Thrombocytopenia D69.6 Hyponatremia E87.1 Lung nodule R91.1 Hypothyroid E03.9 Hypothyroidism type: unspecified History of splenectomy Z90.81 Fibromyalgia M79.7 DVT prophylaxis Z29.9 Time Spent (min) 35 (1) Hypothyroid Hypothyroidism type: unspecified Qualified Code(s): E03.9 - Hypothyroidism, unspecified
--- NOTE | 2019-09-24 22:50 | Communication Note ---
Date of Service: September 24, 2019 Was called to evaluate patient this evening around 9:00 because she had been increasingly agitated and hostile. Per nursing she had cut her IV lines leaving her IV medications to just go out onto the floor, she was demand to leave right away, she is very confused and impulsive in her behavior. She would refuse to answer any of my questions. At this time I do not feel she is safe to make her own decisions, I called her daughter and discussed the situation. This point decision was made to give sedative medications as she continued to try to get up and was a danger to herself and others. Gave patient 2 mg Ativan 5 mg of Haldol she is now sleeping comfortably.
[2019-09-25] MEDS: LEVOTHYROXINE SODIUM 100 MCG TABLET PO SCH (06:06)
[2019-09-25] MEDS: DOXYCYCLINE HYCLATE 100 MG CAP PO SCH ×2 (07:27→20:33)
[2019-09-25] MEDS: PANTOprazole 40 MG TAB PO SCH (07:27)
[2019-09-25] MEDS: ENOXAPARIN INJ 40 MG/0.4 ML SYR SQ SCH (09:50)
[2019-09-25 16:03] LABS: Nucleated RBC # (auto) 0.12 K/uL (0-0); Nucleated RBC % (auto) 0.7 %
[2019-09-25 16:31] LABS: Albumin Globulin Ratio 0.7 (0.9-2); Albumin Level 2.8 gm/dl (3.4-5.0); BUN Creatinine Ratio 14.6 (10-20); Bilirubin,Total 0.7 mg/dl (0.2-1); Calcium 8.3 mg/dl (8.5-10.1); Creatinine Clr Calc Pharmacy 70.2 ml/min; Est GFR (African American) 71.2; Est GFR (Non-African American) 61.4; Globulin 4.1 gm/dl (2.5-4.0); Phosphorus 2.5 mg/dl (2.5-4.9); Potassium 3.1 mmol/L (3.5-5.1); Total Protein 6.9 gm/dl (6.4-8.2)
[2019-09-25 16:34] LABS: Hematocrit (blood only) 40.4 % (37-47); Hemoglobin 13.7 g/dL (12.0-16.0); Mean Corpuscular Hemoglobin 28.5 pg (25-34); Mean Corpuscular Hgb Conc 33.9 g/dL (32-36); Mean Platelet Volume 12.8 fL (7.4-10.4); Platelet Count 177 K/uL (130-400); RDW Coefficient of Variation 16.1 % (11.5-14.5); RDW Standard Deviation 49.5 fL (36.4-46.3); Red Blood Count 4.81 M/uL (4.2-5.4); White Blood Count 16.26 K/uL (4.8-10.8)
[2019-09-25 16:56] LABS: ALC (manual) 9.64 K/uL (1.2-3.4); ANC (manual) 5.04 K/uL (1.4-6.5); Large Granular Lymph # (manua 4.75 K/uL; Large Granular Lymph % (manual) 29.2 %; Lymphocytes # (manual) 4.89 K/uL (1.2-3.4); Lymphocytes % (manual) 30.1 %; Metamyelocytes # (manual) 0.15 K/uL (0-0); Metamyelocytes % (manual) 0.9 %; Monocytes # (manual) 0.86 K/uL (0.11-0.59); Monocytes % (manual) 5.3 %; Myelocytes # (manual) 0.57 K/uL (0-0); Myelocytes % (manual) 3.5 %; Neutrophils # (manual) 5.04 K/uL (1.4-6.5)
[2019-09-25] MEDS ORDERED: POTASSIUM CHLORIDE 20 MEQ TABCR PO ONE (18:15)
[2019-09-25] MEDS: POTASSIUM CHLORIDE 20 MEQ TABCR PO SCH (20:33)
[2019-09-25] MEDS: AMITRIPTYLINE HCL 25 MG TAB PO SCH (20:33)
--- NOTE | 2019-09-25 23:07 | Hospitalist Progress Note ---
Date of Service September 25, 2019 Assessment & Plan (1) Elevated troponin: Troponin elevated at 0.074 --> 0.143. Patient denies chest pain. EKG with sinus tachycardia, no acute ischemic changes. Possibly secondary to Anaplasmosis, myocardial involvement vs sepsis. - On 09/21, troponin jumped from 0.35 to 39. The jump is concerning for ACS, even though she is symptom-free. - Echo on 09/22 showed normal EF, no regional wall motion abnormalities. - Seen by cardiology on 09/22 -> Cath on 09/23 was negative. Unsure as the cause of her elevated trop. But it does not appear to be ACS. It is possible that patient may have had an episode myocarditis. 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 Laboratory abnormalities most likely consistent with this diagnosis - elevated PTT, LFTs and thrombocytopenia. Patient additionally reports that her baseline WBC count is appx 16 so her present value of 9.93 may reflect relative leukopenia. - Doxycycline 100mg po q 12 hours. Monitor closely for clinical improvement - No fever since 09/22, but more confused today than yesterday. will continue doxycycline. Past evening, patient missed a dose of doxycyline due to her being uncooperative. (3) Renal insufficiency: Elevated BUN and Cr, possibly pre-renal etiology as patient appears clinically dry, admits to decreased PO intake as well. - Avoid nephrotoxic agents - Renal dosing where applicable - Continue to monitor BUN/Cr/electrolytes and UOP -> Improved (4) Transaminitis: Mixed hepatocellular/obstructive pattern to LFTs. No RUQ tenderness or hepatomegaly. Possibly secondary to underlying Anaplasmosis infection. -Repeat LFTs still elevated, but not significantly worse. AST jump may reflect her heart damage. (5) Thrombocytopenia: Patient reports low platelets at baseline since her splenectomy, Plt=94. No bleeding. - Continue to monitor - Treatment of Anaplasmosis, sepsis as above. improved to 86. (6) Hyponatremia: Na low at 127. Possibly secondary to poor PO intake and dehydration, Anaplasmosis, less likely SIADH from lung nodule. No seizure or neurological manifestations. - Na improved-> Likely anaplasmosis. (7) Lung nodule: Per CT. A 12 mm nodule within the right middle lobe. This demonstrates a groundglass halo and therefore may represent a small focus of inflammatory/infectious change. However, a neoplastic process is the diagnosis of exclusion. A [address] follow-up is recommended to ensure resolution. - Follow-up CT as recommended (8) Hypothyroid: Chronic. TSH was 0.3 on this admission. In setting of acute illness, will not make adjustment. 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 Patient reports being UTD on all vaccinations. - Follow cultures (10) Fibromyalgia: Noted. - Continue Elavil (11) DVT prophylaxis: Heparin will be stopped. Admission and Anticipated Discharge Date Admission Date: September 21, 2019 Subjective Patient had a difficult night and required ativan and haldol to calm her down. Today she is awake, alert and oriented. Review of Systems Review of Systems: All systems reviewed & are unremarkable except as noted in HPI & below Physical Exam Physical Exam: Constitutional: WD/WN, vitals as above Eyes: EOM intact bilaterally; no conjunctival abnormality ENMT: external ear and nose normal, oropharynx normal Neck: trachea midline, no thyromegaly normal visual inspection Respiratory: normal respiratory effort, lungs clear to auscultation no respiratory distress Cardiovascular: RRR, no murmur, no edema Gastrointestinal (Abdomen): Inspection/Auscultation: abdomen normal to inspection; abdomen not distended Musculoskeletal: no cyanosis or clubbing, extremities motor strength 5/5 Skin: no rashes, warm and dry Neurologic: moves all extremities and awake Psychiatric: Orientation: alert, oriented to person and place and cooperative Results & Data Results & Data ([facility]) Vital Signs (Past 12 Hours) Vital Signs Temp Pulse Pulse Resp BP Pulse Ox 09/25/19 20:56 153/94 H 09/25/19 19:41 36.7 C 101 H 18 92 09/25/19 16:00 96 H 09/25/19 15:02 36.9 C 102 H 21 158/82 H 93 09/25/19 11:14 36.9 C 99 H 18 151/92 H 99 PG Care Time/CCT Total # of Minutes Spent Total Time Spent with Patient: Total time spent is greater than 50% in coordination of care (as documented) at patient's floor/unit and/or counseling patient: Coding Level of Care Code 60830 Subseq Hosp Care Lvl 3 Diagnoses Elevated troponin R79.89 Anaplasmosis A77.49 Renal insufficiency N28.9 Transaminitis R74.0 Thrombocytopenia D69.6 Hyponatremia E87.1 Lung nodule R91.1 Hypothyroid E03.9 Hypothyroidism type: unspecified History of splenectomy Z90.81 Fibromyalgia M79.7 DVT prophylaxis Z29.9 Time Spent (min) 35 Comment Updated spouse (1) Hypothyroid Hypothyroidism type: unspecified Qualified Code(s): E03.9 - Hypothyroidism, unspecified
[2019-09-26] MEDS: LEVOTHYROXINE SODIUM 100 MCG TABLET PO SCH (06:09)
[2019-09-26] MEDS: PANTOprazole 40 MG TAB PO SCH (07:54)
[2019-09-26] MEDS: POTASSIUM CHLORIDE 20 MEQ TABCR PO SCH ×3 (07:55→20:48)
[2019-09-26] MEDS: ENOXAPARIN INJ 40 MG/0.4 ML SYR SQ SCH (07:55)
[2019-09-26] MEDS: DOXYCYCLINE HYCLATE 100 MG CAP PO SCH ×2 (07:55→20:48)
[2019-09-26 08:57] LABS: Nucleated RBC # (auto) 0.03 K/uL (0-0); Nucleated RBC % (auto) 0.2 %
[2019-09-26 09:28] LABS: Albumin Globulin Ratio 0.7 (0.9-2); Albumin Level 2.9 gm/dl (3.4-5.0); BUN Creatinine Ratio 10.5 (10-20); Bilirubin,Total 0.9 mg/dl (0.2-1); Calcium 8.6 mg/dl (8.5-10.1); Creatinine Clr Calc Pharmacy 66.1 ml/min; Est GFR (African American) 66.5; Est GFR (Non-African American) 57.3; Globulin 4.1 gm/dl (2.5-4.0); Potassium 3.1 mmol/L (3.5-5.1)
[2019-09-26 09:40] LABS: Hematocrit (blood only) 41.2 % (37-47); Hemoglobin 13.5 g/dL (12.0-16.0); Mean Corpuscular Hemoglobin 27.8 pg (25-34); Mean Corpuscular Hgb Conc 32.8 g/dL (32-36); Mean Corpuscular Volume 84.8 fL (80-100); Mean Platelet Volume 12.4 fL (7.4-10.4); Platelet Count 301 K/uL (130-400); RDW Coefficient of Variation 15.9 % (11.5-14.5); RDW Standard Deviation 49.3 fL (36.4-46.3); Red Blood Count 4.86 M/uL (4.2-5.4); White Blood Count 14.85 K/uL (4.8-10.8)
[2019-09-26 10:23] LABS: ANC (manual) 5.67 K/uL (1.4-6.5); Basophils # (manual) 0.25 K/uL (0-0.2); Basophils % (manual) 1.7 %; Eosinophils # (manual) 0.12 K/uL (0-0.5); Eosinophils % (manual) 0.8 %; Howell-Jolly Bodies 1+; Large Granular Lymph # (manua 3.15 K/uL; Large Granular Lymph % (manual) 21.2 %; Lymphocytes # (manual) 3.65 K/uL (1.2-3.4); Lymphocytes % (manual) 24.6 %; Metamyelocytes # (manual) 0.37 K/uL (0-0); Metamyelocytes % (manual) 2.5 %; Monocytes # (manual) 1.26 K/uL (0.11-0.59); Monocytes % (manual) 8.5 %; Myelocytes # (manual) 0.37 K/uL (0-0); Myelocytes % (manual) 2.5 %; Neutrophils # (manual) 5.67 K/uL (1.4-6.5); Neutrophils % (manual) 38.2 %
[2019-09-26 12:41] LABS: Magnesium 1.9 mg/dl (1.8-2.4); Troponin I 3.87 ng/ml (0-0.045)
[2019-09-26] MEDS: POTASSIUM CHLORIDE / WTR 10 MEQ/100 ML PLCT IV SCH ×4 (12:59→18:36)
--- NOTE | 2019-09-26 16:35 | XCELERA ---
[id number]
[2019-09-26 16:49] LABS: Creatinine Urine Random 20.7 mg/dl; Potassium Random Urine 8.3 mmol/L
[2019-09-26] MEDS: AMITRIPTYLINE HCL 25 MG TAB PO SCH (20:48)
--- NOTE | 2019-09-26 22:14 | Hospitalist Progress Note ---
Date of Service September 26, 2019 Assessment & Plan (1) Elevated troponin: Troponin elevated at 0.074 --> 0.143. Patient denies chest pain. EKG with sinus tachycardia, no acute ischemic changes. Possibly secondary to Anaplasmosis, myocardial involvement vs sepsis. - On 09/21, troponin jumped from 0.35 to 39. The jump is concerning for ACS, even though she is symptom-free. - Echo on 09/22 showed normal EF, no regional wall motion abnormalities. - Seen by cardiology on 09/22 -> Cath on 09/23 was negative. Unsure as the cause of her elevated trop. But it does not appear to be ACS. It is possible that patient may have had an episode myocarditis. will order repeat echo cardiogram. 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 Laboratory abnormalities most likely consistent with this diagnosis - elevated PTT, LFTs and thrombocytopenia. Patient additionally reports that her baseline WBC count is appx 16 so her present value of 9.93 may reflect relative leukopenia. - Doxycycline 100mg po q 12 hours. Monitor closely for clinical improvement - No fever since 09/22, but more confused today than yesterday. will continue doxycycline. Past evening, patient missed a dose of doxycyline due to her being uncooperative. (3) Renal insufficiency: Elevated BUN and Cr, possibly pre-renal etiology as patient appears clinically dry, admits to decreased PO intake as well. - Avoid nephrotoxic agents - Renal dosing where applicable - Continue to monitor BUN/Cr/electrolytes and UOP -> Improved (4) Transaminitis: Mixed hepatocellular/obstructive pattern to LFTs. No RUQ tenderness or hepatomegaly. Possibly secondary to underlying Anaplasmosis infection. -Repeat LFTs still elevated, but not significantly worse. AST jump may reflect her heart damage. (5) Thrombocytopenia: Patient reports low platelets at baseline since her splenectomy, Plt=94. No bleeding. - Continue to monitor - Treatment of Anaplasmosis, sepsis as above. improved to 86. (6) Hyponatremia: Na low at 127. Possibly secondary to poor PO intake and dehydration, Anaplasmosis, less likely SIADH from lung nodule. No seizure or neurological manifestations. - Na improved-> Likely anaplasmosis. (7) Lung nodule: Per CT. A 12 mm nodule within the right middle lobe. This demonstrates a groundglass halo and therefore may represent a small focus of inflammatory/infectious change. However, a neoplastic process is the diagnosis of exclusion. A [address] follow-up is recommended to ensure resolution. - Follow-up CT as recommended (8) Hypothyroid: Chronic. TSH was 0.3 on this admission. In setting of acute illness, will not make adjustment. 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 Patient reports being UTD on all vaccinations. - Follow cultures (10) Fibromyalgia: Noted. - Continue Elavil (11) DVT prophylaxis: Heparin will be stopped. (12) Hypokalemia: potassium is low. unsure as the cause. patient was acidotic prior. perhaps needs to be replenished. will obtain urine potassium and creatinine. will recheck in AM. Admission and Anticipated Discharge Date Admission Date: September 21, 2019 Subjective Patient reports feeling well. She has no new complaints. Review of Systems Review of Systems: All systems reviewed & are unremarkable except as noted in HPI & below Physical Exam Physical Exam: Constitutional: WD/WN, vitals as above Eyes: EOM intact bilaterally; no conjunctival abnormality ENMT: external ear and nose normal, oropharynx normal Neck: trachea midline, no thyromegaly normal visual inspection Respiratory: normal respiratory effort, lungs clear to auscultation no respiratory distress Cardiovascular: RRR, no murmur, no edema Gastrointestinal (Abdomen): Inspection/Auscultation: abdomen normal to inspection; abdomen not distended Musculoskeletal: no cyanosis or clubbing, extremities motor strength 5/5 Skin: no rashes, warm and dry Neurologic: moves all extremities and awake Psychiatric: Orientation: alert, oriented to person and place and cooperative Results & Data Results & Data ([facility]) Vital Signs (Past 12 Hours) Vital Signs Temp Pulse Pulse Resp BP Pulse Ox 09/26/19 19:17 37.4 C 96 H 18 142/82 H 95 09/26/19 16:00 102 H 09/26/19 15:31 37.7 C H 95 H 18 132/82 98 09/26/19 11:28 37.3 C 100 H 18 144/80 H 96 PG Care Time/CCT Total # of Minutes Spent Total Time Spent with Patient: Total time spent is greater than 50% in coordination of care (as documented) at patient's floor/unit and/or counseling patient: Coding Level of Care Code 07264 Subseq Hosp Care Lvl 3 Diagnoses Elevated troponin R79.89 Anaplasmosis A77.49 Renal insufficiency N28.9 Transaminitis R74.0 Thrombocytopenia D69.6 Hyponatremia E87.1 Lung nodule R91.1 Hypothyroid E03.9 Hypothyroidism type: unspecified History of splenectomy Z90.81 Fibromyalgia M79.7 DVT prophylaxis Z29.9 Hypokalemia E87.6 Time Spent (min) 35 (1) Hypothyroid Hypothyroidism type: unspecified Qualified Code(s): E03.9 - Hypothyroidism, unspecified
[2019-09-27 06:17] LABS: Nucleated RBC # (auto) 0.05 K/uL (0-0); Nucleated RBC % (auto) 0.3 %
[2019-09-27 06:24] LABS: Hematocrit (blood only) 39.4 % (37-47); Hemoglobin 12.7 g/dL (12.0-16.0); Mean Corpuscular Hemoglobin 27.4 pg (25-34); Mean Corpuscular Hgb Conc 32.2 g/dL (32-36); Mean Corpuscular Volume 85.1 fL (80-100); Mean Platelet Volume 11.9 fL (7.4-10.4); Platelet Count 479 K/uL (130-400); RDW Coefficient of Variation 15.9 % (11.5-14.5); RDW Standard Deviation 49.5 fL (36.4-46.3); Red Blood Count 4.63 M/uL (4.2-5.4)
[2019-09-27] MEDS: LEVOTHYROXINE SODIUM 100 MCG TABLET PO SCH (06:25)
[2019-09-27 06:37] LABS: ALC (manual) 3.43 K/uL (1.2-3.4); Basophils # (manual) 0.15 K/uL (0-0.2); Basophils % (manual) 0.9 %; Giant Platelets 1+; Howell-Jolly Bodies 1+; Lymphocytes # (manual) 3.43 K/uL (1.2-3.4); Lymphocytes % (manual) 20.9 %; Metamyelocytes # (manual) 0.57 K/uL (0-0); Metamyelocytes % (manual) 3.5 %; Monocytes % (manual) 6.1 %; Myelocytes # (manual) 0.15 K/uL (0-0); Myelocytes % (manual) 0.9 %; Neutrophils % (manual) 67.7 %
[2019-09-27 07:00] LABS: BUN Creatinine Ratio 10.5 (10-20); Calcium 8.4 mg/dl (8.5-10.1); Creatinine Clr Calc Pharmacy 69.3 ml/min; Est GFR (African American) 70.4; Est GFR (Non-African American) 60.7
[2019-09-27] MEDS: PANTOprazole 40 MG TAB PO SCH (08:21)
[2019-09-27] MEDS: ENOXAPARIN INJ 40 MG/0.4 ML SYR SQ SCH (08:21)
[2019-09-27] MEDS: DOXYCYCLINE HYCLATE 100 MG CAP PO SCH (08:21)
[2019-09-27] MEDS: POTASSIUM CHLORIDE 20 MEQ TABCR PO SCH ×2 (08:21→13:17)
--- NOTE | 2019-10-04 13:38 | Discharge Summary ---
Date of Service September 27, 2019 Admission HPI Per Admitting Provider Giselle Goncalves is a 54yo C female with history of FM, Hypothyroidism, remote history of Auto-immune hemolytic anemia s/p splenectomy at age 13. She reports following regularly with PCP and is UTD on all vaccinations. Patient was in her usual state of health until appx 5 days ago when she began "feeling weird" to include weakness/fatigue, imbalance, fevers/chills. Diarrhea x 1 day. Also with headache and nausea as well as a rash in her left axilla. Patient febrile and tachycardic on arrival. She denies visual changes, focal numbness/tingling/weakness/CP/cough/SOB/dysuria No recent travel or sick contacts. No recent contact with Covid-19 positive individuals. +Tick exposure - patient had two recent tick bites approximately 2 weeks ago. She reports that the ticks were attached but not engorged. Patient has a dog that was diagnosed with Anaplasmosis years ago. ER Course: Vancomycin Ceftriaxone Doxycycline NSS Tylenol Principal Diagnosis Anaplasmosis Discharge Exam Constitutional: WD/WN, vitals as above Eyes: EOM intact bilaterally; no conjunctival abnormality ENMT: external ear and nose normal, oropharynx normal Neck: trachea midline, no thyromegaly normal visual inspection Respiratory: normal respiratory effort, lungs clear to auscultation no respiratory distress Cardiovascular: RRR, no murmur, no edema Gastrointestinal (Abdomen): Inspection/Auscultation: abdomen normal to inspection; abdomen not distended Musculoskeletal: no cyanosis or clubbing, extremities motor strength 5/5 Skin: no rashes, warm and dry Neurologic: moves all extremities and awake Psychiatric: Orientation: alert, oriented to person and place and cooperative Discharge Data Allergies Allergy/AdvReac Type Severity Reaction Status Date / Time nisoldipine Allergy UNKN Verified 09/21/19 20:48 telithromycin Allergy UNKN Verified 09/21/19 20:48 propoxyphene AdvReac Mild shakes Verified 09/21/19 20:48 zolpidem AdvReac Mild dizzy Verified 09/21/19 20:48 ANITIBIOTICS Allergy . Uncoded 09/21/19 20:48 Tartrazine Allergy UNKN Uncoded 09/21/19 20:48 Consultations 09/21/19 19:51 ED Decision to Admit Stat 09/23/19 03:07 Consult Cardiology Routine Procedures Performed Operation Date: 09/24/19 08:00 Actual Procedures s Cineradiography w/Routine Exam - Rebel Pavon MD p Cath, Left with Cors and Vent - Rebel Pavon MD Ordered Studies 09/21/19 16:37 CT head/brain wo con Stat 09/21/19 19:24 CT abd pelvis wo con Stat 09/24/19 06:46 CL Cath Imgs for PACS use only Routine Hospital Course (1) Elevated troponin: Troponin elevated at 0.074 --> 0.143. Patient denies chest pain. EKG with sinus tachycardia, no acute ischemic changes. Possibly secondary to Anaplasmosis, myocardial involvement vs sepsis. - On 09/21, troponin jumped from 0.35 to 39. The jump is concerning for ACS, even though she is symptom-free. - Echo on 09/22 showed normal EF, no regional wall motion abnormalities. - Seen by cardiology on 09/22 -> Cath on 09/23 was negative. Unsure as the cause of her elevated trop. But it does not appear to be ACS. It is possible that patient may have had an episode myocarditis. will order repeat echo cardiogram: this showed normal EF but small pericardial effusion. 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 Laboratory abnormalities most likely consistent with this diagnosis - elevated PTT, LFTs and thrombocytopenia. Patient additionally reports that her baseline WBC count is appx 16 so her present value of 9.93 may reflect relative leukopenia. - Doxycycline 100mg po q 12 hours. Monitor closely for clinical improvement - No fever since 09/22, but more confused today than yesterday. will continue doxycycline. (3) Renal insufficiency: Acute kidney failure, POA, resolving As noted below on problem Elevated BUN and Cr, possibly pre-renal etiology as patient appears clinically dry, admits to decreased PO intake as well. - Avoid nephrotoxic agents - Renal dosing where applicable - Continue to monitor BUN/Cr/electrolytes and UOP -> Improved (4) Transaminitis: Mixed hepatocellular/obstructive pattern to LFTs. No RUQ tenderness or hepatomegaly. Possibly secondary to underlying Anaplasmosis infection. -Repeat LFTs still elevated, but not significantly worse. AST jump may reflect her heart damage. (5) Thrombocytopenia: Patient reports low platelets at baseline since her splenectomy, Plt=94. No bleeding. - Continue to monitor - Treatment of Anaplasmosis, sepsis as above. improved to 86. (6) Hyponatremia: Na low at 127. Possibly secondary to poor PO intake and dehydration, Anaplasmosis, less likely SIADH from lung nodule. No seizure or neurological manifestations. - Na improved-> Likely anaplasmosis. (7) Lung nodule: Per CT. A 12 mm nodule within the right middle lobe. This demonstrates a groundglass halo and therefore may represent a small focus of inflammatory/infectious change. However, a neoplastic process is the diagnosis of exclusion. A [address] follow-up is recommended to ensure resolution. - Follow-up CT as recommended (8) Hypothyroid: Chronic. TSH was 0.3 on this admission. In setting of acute illness, will not make adjustment. 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 Patient reports being UTD on all vaccinations. - Follow cultures (10) Fibromyalgia: Noted. - Continue Elavil (11) DVT prophylaxis: Heparin will be stopped. (12) Hypokalemia: resolved. Total Time Total Time Spent Total Time Spent (In Minutes): 32 Total Time Includes: Examination of the Patient, Discharge Planning and Medication Reconciliation Discharge Plan Discharge Items Patient Disposition: Home - Self-Care Reason For Visit: ANAPLASMOSIS Discharge Diagnosis: anaplasmosis/ myocarditis Activity: Resume your previous activity Non-emergency contact: Primary Care Provider Call non-emergency contact if: you have any medication questions Follow-up/Referrals: Andrew Gutierrez MD [Primary Care Provider] - 10/01/19 3:30 pm Diet: Regular Addtl Attending Provider Instructions: You have been hospitalized for an acute medical problem. During your stay at [facility], we have made an effort to correct the problem that brought you to the hospital while keeping you as comfortable as possible. Medications were used to bring your condition under control and your discharge instructions will include directions for any medications you should take after leaving the hospital. Please make sure you see your Primary Care Provider as part of your follow up plan. Pending Studies at Discharge: No Stand-Alone Forms: [facility], Smoking Cessation Medications and DC Order Prescriptions: New acetaminophen 325 mg Tablet 650 mg PO Q4H PRN (Reason: pain) Qty: 10 RF: 0 doxycycline hyclate 100 mg Capsule 100 mg PO BID Qty: 10 RF: 0 Continued levothyroxine [Unithroid] 100 mcg tablet 100 mcg PO DAILY RF: 0 amitriptyline 25 mg tablet 75 mg PO DAILY RF: 0 Omeprazole Disintegrating Tab 10 mg PO DAILY RF: 0 Discharge Orders: Discharge Order (Routine); Ordered 09/27/19 Ordered By: Johnson Rodriguez/Other Patient Handouts: Doxycycline tablets or capsules Admission Data Admit Date/Time: 09/21/19 21:31 Attending Provider: Johnson Borges Admit Provider: Rosmery Simmons Primary Care Provider: Andrew Gutierrez Other Providers: Gerald Salgado ; Rosmery Simmons ; Rebel Pavon Other Interventions: Discharge Summary Assessment (RN) Last Done: 09/27/19 14:21 DC Date/Time DO NOT enter until pt leaves facility: 09/27/19 14:56 Coding Level of Care Code D/C Day Management >30 mins Diagnoses Elevated troponin R79.89 Anaplasmosis A77.49 Renal insufficiency N28.9 Transaminitis R74.0 Thrombocytopenia D69.6 Hyponatremia E87.1 Lung nodule R91.1 Hypothyroid E03.9 Hypothyroidism type: unspecified History of splenectomy Z90.81 Fibromyalgia M79.7 DVT prophylaxis Z29.9 Hypokalemia E87.6 Time Spent (min) 32
== END 2019-09-27 14:56 | disposition home or self-care (01) | DRG 867 ==
LOC: ED 15:59 → 2N 21:31 → SUATTDRO 21:31 → 2N 22:12 → 2S 09-23 03:06

== ENCOUNTER 2024-09-06 14:53 | Observation (INO) ==
--- NOTE | 2024-09-06 15:24 | XRay Report ---
XR chest 1V portable CLINICAL HISTORY: Sepsis COMPARISON STUDY: 08/27/2024 FINDINGS: Heart size and pulmonary vasculature are normal. There is minimal residual stranding opacit y at the right mid lung, improved. There is interval minimal stranding at the right lung base. No lob ar consolidation or pleural effusion. No pneumothorax. IMPRESSION: 1. Mildly persistent but improved pneumonia at the right mid lung. 2. Interval mild stranding at the right lung base, early pneumonia versus atelectasis. ACT 112: Negative or not required by law. Electronically signed by: Scar Lassiter M.D. 09/06/2024 3:23 PM
--- NOTE | 2024-09-06 15:26 | Emergency Department Note ---
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 She has been sick for 2 weeks with fever, fatigue, some cough. There is some pain with coughing. She feels mildly short of breath. The patient came to the ED and was evaluated for the possibility of pneumonia. Hospitalization was discussed but it was felt the patient was safe with discharge with outpatient antibiotics arranged by the hospitalist. Patient received a week of IV ceftriaxone, she stopped this medication 3 days ago. The patient is here again today because her symptoms are ongoing. She is not better. She still having fever and cough and fatigue. No urinary complaints, no bowel complaints. PMHx/PSHx/Social Hx: See Below PHYSICAL EXAM: GENERAL: Patient is in no acute distress. HEENT: No acute trauma, normocephalic atraumatic, mucous membranes moist, no nasal congestion. NECK: No stridor, no adenopathy, no meningismus, trachea is midline. LUNGS: Clear to auscultation bilaterally, no wheeze, no rhonchi, breath sounds equal. HEART: Without murmurs gallops or rubs, regular rate and rhythm. ABDOMEN: Soft, nontender, no peritonitis. EXTREMITIES: No cyanosis, full range of motion of all the joints without pain or difficulty. NEUROLOGIC: Oriented x 3, no acute motor or sensory deficits, no focal weakness. SKIN: No jaundice, no diaphoresis. DIFFERENTIAL DIAGNOSIS: Bacteremia, endocarditis, immunocompromise, pneumonia, bronchitis, UTI, among others. EMERGENCY DEPARTMENT PROCEDURES: MEDICAL DECISION MAKING: There is a moderate leukocytosis, this would be consistent with infection. There was a normal hemoglobin. Platelet count somewhat elevated at 641. A bandemia was present on the CBC differential. No worrisome coagulopathy. Potassium slightly low but not in need of emergent correction. No renal failure. Lactic acid level was not elevated making severe sepsis less likely. There were some subtle liver enzyme elevations however, the bilirubin was normal. ECG showed a sinus rhythm, no ischemia. Cardiac enzyme testing x 1 was slightly elevated, likely secondary mismatch although cardiac injury was certainly considered. Urinalysis did not show findings of infection. MRSA nasal screen was negative. Chest x-ray shows a patchy right sided pneumonia. The patient received IV saline for hydration. She was given IV cefepime as antibiotic coverage. She was given IV Zithromax. The patient presents with ongoing respiratory symptoms despite outpatient treatment. She still has pneumonia. She has a history of splenectomy. She is immunocompromised. Given the patient's history, given the failed outpatient therapy, admission is warranted. I did speak with the patient and case management, the on-call hospitalist was consulted. Prior/Outside records/notes reviewed: Hospitalist consultation from 08/27/2024 discussing her presentation, findings and plan outpatient. ECG per my interpretation: Indication was possible sepsis. The ECG shows a normal sinus rhythm with a rate of 92. There is no acute ST elevation, no PVCs. The QTc is 460. Continuous Cardiac Monitoring per my interpretation: An order was placed for continuous cardiac monitoring. The monitor shows a rate of 89 with normal sinus rhythm. Imaging/x-ray results per my interpretation: Chest x-ray shows a patchy right sided pneumonia. Chronic Medical/Social conditions affecting care: Asplenic. Care/Management discussed with: Case management, the on-call hospitalist. Level of care consideration(s): After review of the information above and other included data: --I believe the patient requires escalation of care to admission DISPOSITION: Admission Past Med/Surg History Problem List (Updated 09/06/24 @ 23:28 by Allan Foster MD) Failure of outpatient treatment (Acute) Pneumonia (Acute) Leukocytosis (Acute) Leukocytosis Hypokalemia Hematuria (Acute) Pneumonia (Acute) Fever (Acute) Asplenia (Acute) Adnexal fullness Complex ovarian cyst Hypothyroid Lung nodule Fibromyalgia History of splenectomy (Acute) History of AIHA Medical History Hypokalemia DVT prophylaxis Sepsis Anaplasmosis Surgical History H/O tubal ligation H/O dilation and curettage after miscarriage History of hemorrhoidectomy S/P tonsillectomy History of abdominal hysterectomy History of cholecystectomy Family History Other No significant family history Social History Smoking Status: Never smoker Second Hand Exposure: No; Do You Dip or Chew Tobacco: No; Hx Alcohol Use: No Hx Substance Use: No Preferred Language: Cymro Communication Ability: Effective Water Treatment Technician Required: No Beliefs That Will Affect Care: None Current Living Situation: Spouse Feels Safe at Home: Yes Assistive Devices: Brace/Splint/Immobilizer, Denture - Upper, Denture - Lower and Glasses Allergies Allergies Allergy/AdvReac Type Severity Reaction Status Date / Time azithromycin Allergy Rash Verified 09/06/24 20:09 nisoldipine Allergy UNKN Verified 09/06/24 16:47 telithromycin Allergy Diarrhea Verified 09/06/24 16:47 propoxyphene AdvReac Mild shakes Verified 09/06/24 16:47 zolpidem AdvReac Mild dizzy Verified 09/06/24 16:47 Home Meds Home Medications Medication Instructions Recorded Confirmed amitriptyline 25 mg tablet 100 mg PO DAILY 09/21/19 09/06/24 levothyroxine 100 mcg tablet 100 mcg PO DAILY 09/21/19 09/06/24 (Unithroid) omeprazole 20 mg capsule,delayed 20 mg PO TIDM 06/17/21 09/06/24 release Results & Data (ED) Vital Signs Vital Signs - 24 hr 09/06/24 14:53 09/06/24 15:05 09/06/24 15:05 Temperature 37.6 C H Temperature Source Oral Pulse Rate 93 H Pulse Rate [Right Brachial] 90 Pulse Rate from SpO2 Sensor Pulse Rhythm [Right Brachial] Regular Pulse Strength [Right Brachial] Normal Respiratory Rate 18 20 Respiratory Effort / Characteristics Non-Labored Respiratory Depth Normal Respiratory Pattern Regular Blood Pressure 152/82 H Blood Pressure [Right Arm] 160/92 H Blood Pressure Mean 105 Blood Pressure Mean [Right Arm] 114 Blood Pressure Position [Right Arm] Lying Pulse Oximetry 97 98 98 Oxygen Delivery Method Room Air Room Air Sepsis Recent Fever Within 48 Hours No Sepsis New/Unexplained Change in Mental Status N/A Sepsis Action Taken by Nursing No Action Required 09/06/24 15:42 09/06/24 15:48 09/06/24 15:54 Temperature Temperature Source Pulse Rate 89 92 H 88 Pulse Rate [Right Brachial] Pulse Rate from SpO2 Sensor 88 90 Pulse Rhythm [Right Brachial] Pulse Strength [Right Brachial] Respiratory Rate 18 15 Respiratory Effort / Characteristics Respiratory Depth Respiratory Pattern Blood Pressure 160/92 H Blood Pressure [Right Arm] Blood Pressure Mean 114 Blood Pressure Mean [Right Arm] Blood Pressure Position [Right Arm] Pulse Oximetry 98 95 Oxygen Delivery Method Sepsis Recent Fever Within 48 Hours Sepsis New/Unexplained Change in Mental Status Sepsis Action Taken by Nursing 09/06/24 16:03 09/06/24 16:18 09/06/24 16:30 Temperature Temperature Source Pulse Rate 89 90 92 H Pulse Rate [Right Brachial] Pulse Rate from SpO2 Sensor 89 Pulse Rhythm [Right Brachial] Pulse Strength [Right Brachial] Respiratory Rate 19 18 17 Respiratory Effort / Characteristics Respiratory Depth Respiratory Pattern Blood Pressure 167/90 H 163/89 H Blood Pressure [Right Arm] Blood Pressure Mean 115 136 Blood Pressure Mean [Right Arm] Blood Pressure Position [Right Arm] Pulse Oximetry 98 96 95 Oxygen Delivery Method Sepsis Recent Fever Within 48 Hours Sepsis New/Unexplained Change in Mental Status Sepsis Action Taken by Nursing 09/06/24 16:45 09/06/24 17:01 Temperature Temperature Source Pulse Rate 90 86 Pulse Rate [Right Brachial] Pulse Rate from SpO2 Sensor 91 H 87 Pulse Rhythm [Right Brachial] Pulse Strength [Right Brachial] Respiratory Rate 20 18 Respiratory Effort / Characteristics Respiratory Depth Respiratory Pattern Blood Pressure 162/86 H 194/108 H Blood Pressure [Right Arm] Blood Pressure Mean 105 120 Blood Pressure Mean [Right Arm] Blood Pressure Position [Right Arm] Pulse Oximetry 94 96 Oxygen Delivery Method Sepsis Recent Fever Within 48 Hours Sepsis New/Unexplained Change in Mental Status Sepsis Action Taken by Skilled Nursing Medications Current Medication List: was personally reviewed by me Laboratory Data Attestation: I reviewed the patient's lab results. 09/06/24 15:30 09/06/24 15:30 Lab Results 09/06/24 09/06/24 09/06/24 Range/Units 15:30 16:17 16:18 WBC 16.92 H (4.8-10.8) K/ul RBC 5.16 (4.20-5.40) M/uL Hgb 14.0 (12.0-16.0) g/dl Hct 42.7 (37.0-47.0) % MCV 82.8 (80.0-100.0) fL MCH 27.1 (25.0-34.0) pg MCHC 32.8 (32.0-36.0) g/dL RDW Std Deviation 45.0 (36.4-46.3) fL RDW Coeff of Akila 15.2 H (11.5-14.5) % Plt Count 641 H (130-400) K/uL MPV 9.6 (9.4-12.4) fL Immature Gran % (Auto) 2.2 % Neut % (Auto) 65.4 % Lymph % (Auto) 21.5 % [place] % (Auto) 10.2 % Eos % (Auto) 0.2 % Baso % (Auto) 0.5 % Neut # (Auto) 11.07 H (1.40-6.50) K/uL Lymph # (Auto) 3.64 H (1.20-3.40) K/uL [place] # (Auto) 1.73 H (0.11-0.59) K/uL Eos # (Auto) 0.03 (0.00-0.50) K/uL Baso # (Auto) 0.08 (0.00-0.20) K/uL Immature Gran # (Auto) 0.37 H (0.01-0.20) K/uL PT 11.0 (9.0-12.0) Seconds INR 1.0 (0.9-1.1) APTT 43 H (21-31) Seconds PTT Ratio 1.6 Sodium 133 L (136-145) mmol/L Potassium 3.4 L (3.5-5.1) mmol/L Chloride 98 (98-107) mmol/L Carbon Dioxide 26 (21-32) mmol/L Anion Gap 9 (3-11) BUN 10 (6-23) mg/dl Creatinine 0.93 (0.6-1.2) mg/dl Est Cr Clr Drug Dosing 71.9 ml/min eGFR 69.93 BUN/Creatinine Ratio 10.8 (10-20) Glucose 88 (70-99(Fasting)) mg/dl Lactate 0.9 (0.4-2.0) mmol/L Calcium 9.9 (8.6-10.3) mg/dl Magnesium 2.0 (1.7-2.4) mg/dl Total Bilirubin 0.6 (0.2-1.0) mg/dl Direct Bilirubin 0.2 (0-0.2) mg/dl AST 62 H (13-39) U/L ALT 50 (7-52) U/L Alkaline Phosphatase 142 H (34-104) U/L Troponin I High Sens 17.1 H (0-14) pg/ml Total Protein 8.6 H (6.0-8.3) gm/dl Albumin 4.1 (3.4-5.0) gm/dl Procalcitonin 0.54 H (0-0.5) ng/ml Urine Color Yellow Urine Appearance Clear (Clear) Urine pH 7.0 (4.5-7.5) Ur Specific [place] 1.007 (1.000-1.030) Urine Protein Negative (Negative) Urine Glucose (UA) Negative (Negative) Urine Ketones Negative (Negative) Urine Blood Negative (Negative) Urine Nitrite Negative (Negative) Urine Bilirubin Negative (Negative) Urine Urobilinogen Negative (Negative) Ur Leukocyte Esterase 2+ H (Negative) Urine WBC (Auto) 6-10 H (0-5) /hpf Urine RBC (Auto) 11-20 H (0-2) /hpf U Hyaline Cast (Auto) 0-2 (0-2) /lpf U Epithel Cells (Auto) 0-2 (0-2) /hpf Urine Bacteria (Auto) None Seen (None Seen) Urine Comment Nasal Screen MRSA (PCR) Negative (Negative) Administered Medications Acetaminophen (Acetaminophen Susp 325 Mg/10.15 Ml Udc) 650 mg PO Q6H PRN PRN Reason: Fever or headache Stop: 10/06/24 21:35 Last Admin: 09/06/24 21:42 Dose: 650 mg Documented By: EKF Amitriptyline HCl (Amitriptyline Hcl 100 Mg Tab) 100 mg PO DAILY@2300 [facility] Stop: 10/06/24 22:59 Last Admin: 09/06/24 23:15 Dose: 100 mg Documented By: EKF Pantoprazole Sodium (Pantoprazole 40 Mg Tab) 40 mg PO BID [facility] Stop: 10/06/24 20:59 Last Admin: 09/06/24 20:54 Dose: 40 mg Documented By: EKF Discontinued Medications Sodium Chloride (Nss) 1,000 mls @ 999 mls/hr IV .Q1H1M [facility] Stop: 09/06/24 16:15 Last Infusion: 09/06/24 17:16 Dose: Infused Documented By: Admin: 09/06/24 15:45 Dose: 999 mls/hr Documented By: MAGDALENA Cefepime HCl (Maxipime 2000mg) 2,000 mg in 20 mls @ 5 mls/min IV NOW STA; Protocol Stop: 09/06/24 15:08 Last Admin: 09/06/24 15:45 Dose: 5 mls/min Documented By: MAGDALENA Azithromycin (Zithromax) 500 mg in 255 mls @ 127.5 mls/hr IV NOW STA Stop: 09/06/24 18:10 Last Infusion: 09/06/24 18:29 Dose: Infused Documented By: Admin: 09/06/24 16:24 Dose: 127.5 mls/hr Documented By: LUTHER Potassium Chloride (Potassium Chloride Crtab 20 Meq Tabcr) 20 meq PO NOW STA Stop: 09/06/24 19:51 Last Admin: 09/06/24 20:54 Dose: 20 meq Documented By: EKF Imaging Data Radiologist's Impression: Chest X-Ray 09/06/24 15:05 XR chest 1V portable CLINICAL HISTORY: Sepsis COMPARISON STUDY: 08/27/2024 FINDINGS: Heart size and pulmonary vasculature are normal. There is minimal residual stranding opacity at the right mid lung, improved. There is interval minimal stranding at the right lung base. No lobar consolidation or pleural effusion. No pneumothorax. IMPRESSION: 1. Mildly persistent but improved pneumonia at the right mid lung. 2. Interval mild stranding at the right lung base, early pneumonia versus atelectasis. ACT 112: Negative or not required by law. Electronically signed by: Scar Lassiter M.D. 09/06/2024 3:23 PM Discharge Plan Visit Data Chief Complaint: Illness Stated Complaint: FEVER,COUGH ED Provider: Allan Foster Discharge Problem: Leukocytosis, History of splenectomy, Pneumonia, Failure of outpatient treatment Patient Disposition: Admitted As Inpatient Condition: Fair Discharge Instructions Interventions: ED Discharge Assessment Last Done: 09/06/24 19:26 Discharge Problem: Leukocytosis Qualifiers: Leukocytosis type: unspecified Qualified Code(s): D72.829 - Elevated white blood cell count, unspecified Pneumonia Qualifiers: Pneumonia type: due to unspecified organism Laterality: right Lung location: u nspecified part of lung Qualified Code(s): J18.9 - Pneumonia, unspecified organism
[2024-09-06] MEDS: CEFEPIME 2000MG 2,000 MG/20 ML SYR IV STA (15:45)
[2024-09-06] MEDS: SODIUM CHLORIDE 0.9% 1,000 ML IV SCH (15:45)
[2024-09-06 15:48] LABS: Basophils # (auto) 0.08 K/uL (0.00-0.20); Basophils % (auto) 0.5 %; Eosinophils # (auto) 0.03 K/uL (0.00-0.50); Eosinophils % (auto) 0.2 %; Hematocrit (blood only) 42.7 % (37.0-47.0); Immature Granulocytes # (auto) 0.37 K/uL (0.01-0.20); Immature Granulocytes % (auto) 2.2 %; Lymphocytes # (auto) 3.64 K/uL (1.20-3.40); Lymphocytes % (auto) 21.5 %; Mean Corpuscular Hemoglobin 27.1 pg (25.0-34.0); Mean Corpuscular Hgb Conc 32.8 g/dL (32.0-36.0); Mean Corpuscular Volume 82.8 fL (80.0-100.0); Mean Platelet Volume 9.6 fL (9.4-12.4); Monocytes # (auto) 1.73 K/uL (0.11-0.59); Monocytes % (auto) 10.2 %; Neutrophils # (auto) 11.07 K/uL (1.40-6.50); Neutrophils % (auto) 65.4 %; Platelet Count 641 K/uL (130-400); RDW Coefficient of Variation 15.2 % (11.5-14.5); Red Blood Count 5.16 M/uL (4.20-5.40); White Blood Count 16.92 K/ul (4.8-10.8)
[2024-09-06 16:07] LABS: BUN Creatinine Ratio 10.8 (10-20); Bilirubin Direct 0.2 mg/dl (0-0.2); Bilirubin,Total 0.6 mg/dl (0.2-1.0); Calcium 9.9 mg/dl (8.6-10.3); Creatinine Clr Calc Pharmacy 71.9 ml/min; Potassium 3.4 mmol/L (3.5-5.1); Total Protein 8.6 gm/dl (6.0-8.3)
[2024-09-06 16:13] LABS: Troponin I High Sensitivity 17.1 pg/ml (0-14)
[2024-09-06 16:23] VITALS: O2SAT 96
[2024-09-06] MEDS: AZITHROMYCIN 500 MG/255 ML D5W BAG IV STA (16:24)
[2024-09-06 16:31] LABS: Partial Thromboplastin Ratio 1.6; Partial Thromboplastin Time 43 Seconds (21-31)
[2024-09-06 16:58] LABS: Appearance Urine Clear (Clear); Bacteria Urine Automated None Seen (None Seen); Bilirubin Urine Negative (Negative); Blood Urine Negative (Negative); Cast Urine Automated 0-2 /lpf (0-2); Color Urine Yellow; Epithelial Cell Urine Auto 0-2 /hpf (0-2); Glucose Urine UA Negative (Negative); Ketones Urine Negative (Negative); Leukocyte Esterase Urine 2+ (Negative); Nitrite Urine Negative (Negative); Protein Urine Negative (Negative); Specific Gravity Urine 1.007 (1.000-1.030); Urobilinogen Urine Negative (Negative)
--- NOTE | 2024-09-06 17:25 | History & Physical Report ---
Date of Service September 06, 2024 Assessment & Plan (1) Pneumonia: Plan: Resolving right upper lobe pneumonia seen on chest x-ray. Recently treated with 7 days of outpatient intravenous Rocephin. She received cefepime and azithromycin on admission which will continue (2) Fever: Plan: Intermittent fever and malaise. She may have a concurrent viral illness. Supportive care (3) Hypokalemia: Plan: Oral replacement ordered. Serial lab (4) Leukocytosis: Plan: Appears to be chronic. 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 Hopeful discharge to home tomorrow, September 07 History of Present Illness Chief Complaint: Intermittent fevers, Malays, recent outpatient IV antibiotic treatment for right upper lobe pneumonia Primary Care Provider: Brennan Wilson MD 59-year-old white female who was recently treated with 7 days of IV Rocephin for community-acquired pneumonia involving right upper lobe. She states she is continues to have malaiose and weakness and nonproductive cough. She comes to the ER today for reevaluation. Chest x-ray however looks better. Right upper lobe infiltrate is resolving. Physical exam is unremarkable. She has a persistent leukocytosis however dating to 2019. Potassium is mildly low at 3.4. She was given intravenous cefepime and azithromycin in the ED. She may have a concurrent viral illness causing her current symptoms. She is placed in observation for further assessment. She is on room air and in no acute distress. Allergies Allergy/AdvReac Type Severity Reaction Status Date / Time nisoldipine Allergy UNKN Verified 09/06/24 16:47 telithromycin Allergy Diarrhea Verified 09/06/24 16:47 propoxyphene AdvReac Mild shakes Verified 09/06/24 16:47 zolpidem AdvReac Mild dizzy Verified 09/06/24 16:47 Home Medications Medication Instructions Recorded Confirmed Type amitriptyline 25 mg tablet 100 mg PO DAILY 09/21/19 09/06/24 History levothyroxine 100 mcg tablet 100 mcg PO DAILY 09/21/19 09/06/24 History (Unithroid) omeprazole 20 mg capsule,delayed 20 mg PO TIDM 06/17/21 09/06/24 History release Past Med/Surg History Problem List Leukocytosis Hypokalemia Hematuria (Acute) Pneumonia (Acute) Fever (Acute) Asplenia (Acute) Adnexal fullness Complex ovarian cyst Hypothyroid Lung nodule Fibromyalgia History of splenectomy (Acute) History of AIHA Medical History Hypokalemia DVT prophylaxis Sepsis Anaplasmosis Surgical History H/O tubal ligation H/O dilation and curettage after miscarriage History of hemorrhoidectomy S/P tonsillectomy History of abdominal hysterectomy History of cholecystectomy Family History Other No significant family history Social History Smoking Status: Never smoker Second Hand Exposure: No; Do You Dip or Chew Tobacco: No; Hx Alcohol Use: No Hx Substance Use: No Preferred Language: Afghan Communication Ability: Effective Wreath [employer] Garland Maker Hand Required: No Beliefs That Will Affect Care: None Current Living Situation: Spouse Feels Safe at Home: Yes Assistive Devices: None Review of Systems 2 Review of Systems: Constitutionalthe patient states she has continued intermittent fevers. She denies rigors. She complains of malaise ENTno blurred vision, no double vision, no epistaxis, no sore throat Respiratorynonproductive cough. No pleuritic pain. No wheezing, no shortness of breath Cardiacno palpitations, no chest pain, no syncope Marques nausea, vomiting, diarrhea, melena, hematochezia GUno urinary retention, no urinary incontinence, no dysuria, no hematuria Musculoskeletalno joint pain, no muscle tenderness Skinno bruising, no rashes, no pruritus Neurono isolated weakness, no paresthesia, no weakness Psychno depression, no anxiety Physical Exam 2 Physical Exam: General-alert and oriented x3, no fever, no chills HEENT-head atraumatic and normocephalic, pupils equal and reactive to light, extraocular muscles intact Neck-no lymphadenopathy or thyromegaly, trachea midline Chest-clear to auscultation. No rales, wheezing or rhonchi Cardiac-regular rate and rhythm, normal S1 and S2 Abdomen-normal bowel sounds, no hepatosplenomegaly Extremities-no cyanosis, clubbing, or edema Neuro-cranial nerves II through XII intact, motor and sensory function within normal limits, strength symmetrical, no focal deficits Psych-normal affect, normal mood Results & Data Results & Data Vital Signs (Past 12 Hours) Vital Signs Temp Pulse Pulse Resp BP BP Pulse Ox 09/06/24 16:18 90 18 167/90 H 96 09/06/24 16:03 89 19 98 09/06/24 15:54 88 15 95 09/06/24 15:48 92 H 18 160/92 H 98 09/06/24 15:42 89 09/06/24 15:05 90 20 160/92 H 98 09/06/24 15:05 98 09/06/24 14:53 37.6 C H 93 H 18 152/82 H 97 O2 Del Method 09/06/24 16:18 09/06/24 16:03 09/06/24 15:54 09/06/24 15:48 09/06/24 15:42 09/06/24 15:05 Room Air 09/06/24 15:05 Room Air 09/06/24 14:53 Laboratory Results 09/06/24 15:30 09/06/24 15:30 Code Status & VTE Plan Code Status Full code PG Care Time/CCT Total # of Minutes Spent Total Time Spent with Patient: Total time spent is greater than 50% in coordination of care (as documented) at patient's floor/unit and/or counseling patient: Coding Level of Care Code 91747 INT INP/OBS CARE 3/75MIN Diagnoses Pneumonia J18.9 Laterality: right Lung location: upper lobe of lung Pneumonia type: due to unspecified organism Fever R50.9 Fever type: unspecified Hypokalemia E87.6 Leukocytosis D72.829 Asplenia Q89.01 (1) Pneumonia Laterality: right Lung location: upper lobe of lung Pneumonia type: due to unspecified organism Qualified Code(s): J18.9 - Pneumonia, unspecified organism (2) Fever Fever type: unspecified Qualified Code(s): R50.9 - Fever, unspecified
[2024-09-06] MEDS ORDERED: ACETAMINOPHEN 325 MG TAB PO PRN (19:50)
[2024-09-06] MEDS ORDERED: CEFEPIME 1000MG 1,000 MG/10 ML SYR IV SCH (19:50)
[2024-09-06] MEDS ORDERED: ONDANSETRON INJ 2 MG/ML 2 ML VIAL IV PRN (19:50)
[2024-09-06] MEDS: PANTOprazole 40 MG TAB PO SCH (20:54)
[2024-09-06] MEDS: POTASSIUM CHLORIDE CRTAB 20 MEQ TABCR PO STA (20:54)
[2024-09-06] MEDS: ACETAMINOPHEN SUSP 325 MG/10.15 ML UDC PO PRN (21:42)
[2024-09-06] MEDS ORDERED: Nursing to Pharmacy Communication SCH (21:45)
[2024-09-06] MEDS: AMITRIPTYLINE HCL 100 MG TAB PO SCH (23:15)
[2024-09-06] MEDS: CEFEPIME 2000MG 2,000 MG/20 ML SYR IV SCH (23:23)
[2024-09-07 06:10] LABS: Basophils # (auto) 0.07 K/uL (0.00-0.20); Basophils % (auto) 0.5 %; Eosinophils % (auto) 0.7 %; Hematocrit (blood only) 38.4 % (37.0-47.0); Hemoglobin 12.5 g/dl (12.0-16.0); Immature Granulocytes # (auto) 0.26 K/uL (0.01-0.20); Immature Granulocytes % (auto) 1.9 %; Lymphocytes % (auto) 20.9 %; Mean Corpuscular Hgb Conc 32.6 g/dL (32.0-36.0); Mean Corpuscular Volume 82.9 fL (80.0-100.0); Monocytes # (auto) 1.88 K/uL (0.11-0.59); Neutrophils # (auto) 8.28 K/uL (1.40-6.50); Platelet Count 564 K/uL (130-400); RDW Coefficient of Variation 15.1 % (11.5-14.5); RDW Standard Deviation 45.4 fL (36.4-46.3); Red Blood Count 4.63 M/uL (4.20-5.40); White Blood Count 13.39 K/ul (4.8-10.8)
[2024-09-07 06:30] LABS: BUN Creatinine Ratio 12.5 (10-20); Creatinine Clr Calc Pharmacy 85.4 ml/min; Potassium 3.7 mmol/L (3.5-5.1)
[2024-09-07 08:05] VITALS: BP 135/79; RESP 16; TEMP 97.5
[2024-09-07] MEDS: LEVOTHYROXINE SODIUM 100 MCG TABLET PO SCH (08:30)
[2024-09-07] MEDS: AZITHROMYCIN 250 MG TAB PO SCH (08:30)
--- NOTE | 2024-09-07 08:42 | Electrocardiogram Report ---
Test Reason : Blood Pressure : */* mmHG Vent. Rate : 92 BPM Atrial Rate : 92 BPM P-R Int : 152 ms QRS Dur : 96 ms QT Int : 372 ms P-R-T Axes : 45 32 8 degrees QTcB Int : 460 ms Normal sinus rhythm Possible Left atrial enlargement Low voltage QRS Borderline ECG When compared with ECG of 27-Aug-2024 13:13, No significant change was found Confirmed by Abraham Pavon ([id number]) on 09/07/2024 8:41:05 AM Referred By: REFERRED SELF Confirmed By: Abraham Pavon
[2024-09-07] MEDS ORDERED: AMITRIPTYLINE HCL 100 MG TAB PO SCH (09:00)
--- NOTE | 2024-09-07 11:48 | Discharge Summary ---
Discharge Summary Date of Service September 07, 2024 Principal Dx & Hospital Course #1 = Principal Diagnosis (1) Pneumonia: Resolving right upper lobe pneumonia seen on admission chest x-ray. Recently treated with 7 days of outpatient intravenous Rocephin. She was treated during this short hospital stay with intravenous cefepime and azithromycin. No further antibiotic therapy is required at this time. (2) Fever: Intermittent fever and malaise present on admission. She may have a concurrent viral illness. Supportive care. Now resolved (3) Hypokalemia: Corrected with oral replacement. Serial lab (4) Leukocytosis: Appears to be chronic. 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 She states she is continues to have malaiose and weakness and nonproductive cough. She comes to the ER today for reevaluation. Chest x-ray however looks better. Right upper lobe infiltrate is resolving. Physical exam is unremarkable. She has a persistent leukocytosis however dating to 2019. Potassium is mildly low at 3.4. She was given intravenous cefepime and azithromycin in the ED. She may have a concurrent viral illness causing her current symptoms. She is placed in observation for further assessment. She is on room air and in no acute distress. Discharge Exam General-alert and oriented x3, no fever, no chills HEENT-head atraumatic and normocephalic, pupils equal and reactive to light, extraocular muscles intact Neck-no lymphadenopathy or thyromegaly, trachea midline Chest-clear to auscultation. No rales, wheezing or rhonchi Cardiac-regular rate and rhythm, normal S1 and S2 Abdomen-normal bowel sounds, no hepatosplenomegaly Extremities-no cyanosis, clubbing, or edema Neuro-cranial nerves II through XII intact, motor and sensory function within normal limits, strength symmetrical, no focal deficits Psych-normal affect, normal mood Discharge Plan Discharge Items Patient Disposition: Home - Self-Care Reason For Visit: RESOLVING PNA, INTERMITTENT FEVER, MALAISE Discharge Diagnosis: Resolving pneumonia, intermittent fever, Malays Condition on Discharge: Good Activity: Resume your previous activity Non-emergency contact: Primary Care Provider Call non-emergency contact if: your symptoms worsen Follow-up/Referrals: Brennan Roque MD [Primary Care Provider] - Diet: Regular Addtl Attending Provider Instructions: All medications remain the same. No further antibiotic therapy at this time Pending Studies at Discharge: No Stand-Alone Forms: My [facility], Smoking Cessation Medications and DC Order Prescriptions: Continued omeprazole 20 mg capsule,delayed release(DR/EC) 20 mg PO TIDM levothyroxine [Unithroid] 100 mcg tablet 100 mcg PO DAILY amitriptyline 25 mg tablet 100 mg PO DAILY Rx Instructions: TAKE FOUR 25MG TABLETS DAILY= 100MG DAILY. Discharge Orders: Discharge Order (Routine); Ordered 09/07/24 Ordered By: Gregor Santiago Admission Data Admit Date/Time: 09/06/24 17:14 Attending Provider: Gregor Santiago Admit Provider: Gregor Santiago Primary Care Provider: Brennan Roque Other Providers: Johnson Borges; Gregor Santiago Hospital Stay Data Consultations 09/06/24 16:01 ED Decision to Admit Stat 09/06/24 17:06 ED Decision to Admit Stat Pending Results Patient Have Any Pending Studies at Discharge: No Discharge Instructions Given to Patient (Per Discharging Provider) All medications remain the same. No further antibiotic therapy at this time Total Time Total Time Spent Total Time Spent (In Minutes): 45 minutes Coding Level of Care Code 72920 INP/OBS DISCH >30 MIN Diagnoses Pneumonia J18.9 Laterality: right Lung location: upper lobe of lung Pneumonia type: due to unspecified organism Fever R50.9 Fever type: unspecified Hypokalemia E87.6 Leukocytosis D72.829 Asplenia Q89.01
[2024-09-07 12:14] VITALS: PULSE 90
== END 2024-09-07 12:40 | disposition home or self-care (01) ==
LOC: SUATTDRO → 3E 14:53 → ED 14:53 → 3E 19:26